=== PATIENT | male | born 1950 | race Caucasian/White ===

== ENCOUNTER → 2023-07-05 07:28 | Outpatient (REF) | payer MEDICARE, SELFPAY | LOC: HWRAD 07:28 | PROVIDERS: ATTENDING PHYSICIAN Family Medicine | DX: D18.03 Hemangioma of intra-abdominal structures (principal) | CPT/HCPCS: 76700 ==

== ENCOUNTER → 2023-12-07 09:38 | Outpatient (REF) | payer MEDICARE, SELFPAY | LOC: HWRAD 09:38 | PROVIDERS: ATTENDING PHYSICIAN Family Medicine | DX: R91.1 Solitary pulmonary nodule (principal) | CPT/HCPCS: 71250 ==

== ENCOUNTER → 2024-10-16 09:30 | Outpatient (REF) | payer MEDICARE, SELFPAY ==
[2024-10-16 11:04] LABS: Blood Urea Nitrogen 19 mg/dl (9-20); Calcium 9.2 mg/dl (8.4-10.2); Carbon Dioxide 23 mmol/L (22-30); Chloride 109 mmol/L (98-107); Glucose 90 mg/dl (70-99); Potassium 4.1 mmol/L (3.5-5.1); Sodium 142 mmol/L (135-145); eGFR > 60.00
[2024-10-16 11:33] LABS: PSA, Total - Screen 1.22 ng/ml (0.0-4.0)
== END ==
LOC: REG 09:30
PROVIDERS: ATTENDING PHYSICIAN Family Medicine Geriatric Medicine; FAMILY PHYSICIAN Family Medicine
DX: Z12.5 Encounter for screening for malignant neoplasm of prostate (principal)
CPT/HCPCS: 36415; 80048; G0103

== ENCOUNTER → 2024-10-17 14:26 | Outpatient (REF) | payer MEDICARE, SELFPAY | LOC: RAD 14:26 | PROVIDERS: ATTENDING PHYSICIAN Family Medicine Geriatric Medicine; FAMILY PHYSICIAN Family Medicine | DX: R22.2 Localized swelling, mass and lump, trunk (principal); C61 Malignant neoplasm of prostate | CPT/HCPCS: 71270; 74178; Q9967 ==

== ENCOUNTER → 2024-10-28 06:56 | Outpatient (REF) | payer MEDICARE, SELFPAY ==
[2024-10-28] VITALS (11 sets, daily range): BP systolic 66–132; BP diastolic 67–81
[2024-10-28 07:22] LABS: Hematocrit 38.2 % (39.0-52.0); Hemoglobin 13.1 g/dL (13.0-18.0); Mean Corp Hgb Conc. 34.3 g/dL (33.0-37.0); Mean Corpuscular Volume 92.5 fL (80.0-94.0); Nucleated Red Blood Cells % 0 % (-); Platelet Count 181 10^3/uL (130-400); Red Cell Dist. Width 13.1 % (11.5-14.5)
[2024-10-28 07:30] LABS: INR 1.06; PT 14.1 Sec (11.4-14.6)
== END ==
LOC: RADI 06:56
PROVIDERS: ATTENDING PHYSICIAN Family Medicine Geriatric Medicine; REFERRING PHYSICIAN Physician Assistant
DX: D49.2 Neoplasm of unspecified behavior of bone, soft tissue, and skin (principal); D68.8 Other specified coagulation defects
CPT/HCPCS: 20225; 36415; 77012; 85025; 85610; 88305; 88333; 99152; 99153

== ENCOUNTER → 2024-11-12 08:13 | Outpatient (REF) | payer MEDICARE, SELFPAY ==
[2024-11-12 08:32] LABS: Hematocrit 38.5 % (39.0-52.0); Hemoglobin 12.8 g/dL (13.0-18.0); Mean Corp Hgb Conc. 33.2 g/dL (33.0-37.0); Mean Corpuscular Volume 93.0 fL (80.0-94.0); Nucleated Red Blood Cells % 0 % (-); Platelet Count 168 10^3/uL (130-400); Red Cell Dist. Width 13.1 % (11.5-14.5)
[2024-11-12 08:47] VITALS: BP 124/69; BP_SYST 76; BMI 23.6
[2024-11-12] MEDS: ATIVAN 0.5 MG PO (09:22)
[2024-11-12 11:00] VITALS: BP 135/83
== END ==
LOC: RADI 08:13
PROVIDERS: ATTENDING PHYSICIAN Internal Medicine Hematology & Oncology
DX: C90.00 Multiple myeloma not having achieved remission (principal); C61 Malignant neoplasm of prostate; C79.51 Secondary malignant neoplasm of bone
CPT/HCPCS: 36415; 38222; 77012; 85025; 88305; 88311; 88312; 88313

== ENCOUNTER 2025-01-09 16:19 | Day surgery (SDC) | payer MEDICARE, SELFPAY ==
[2025-01-09] VITALS (16 sets, daily range): BP systolic 0–157; BP diastolic 52–79
--- NOTE | 2025-01-09 09:59 | HPS.HSE ---
Family Physician
-
Family Physician: Alexa Leiva, DO
Chief Complaint
-
Right inguinal hernia
History of Present Illness
This is a 74-year-old male with history of multiple myeloma currently being treated with Bortezomib (followed by Dr. Leiva/luisa) who presents with an acute incarceration over the past 8 hours of his right inguinal hernia in the setting of
worsening pain in the right groin over the past week. He is known to me and has been pursuing a course of watchful waiting. The patient denies Fever, Chest Pain, Shortness Of Breath, Nausea, Vomiting, changes in urinary and bowel habits,
unintentional weight loss, jaundice, icterus, acolic stools.
Medical History
Past Medical History
Past Medical History: Reports Other (Multiple myeloma, prostate cancer)
Past Surgical History: Reports Other (Orthopedic, none relevant)
Social History
Tobacco: Non-smoker
Alcohol: None
Personal:
Living: With Family
Family History
Family History: Not pertinent
Allergies / Home Medications
Allergies reflects when Allergies were last updated in [facility].
Home Medications with original date entered in [facility]
Allergy/Medication List:
Allergies
Allergy/AdvReac Type Severity Reaction Status Date / Time
latex Allergy Itching Verified 01/09/25 09:06
Penicillins Allergy Unknown Verified 01/09/25 09:06
Sulfa (Sulfonamide Allergy Hives Verified 01/09/25 09:06
Antibiotics)
Home Medications
�Medication �Instructions �Recorded
azelastine 137 mcg (0.1 %) nasal 2 spray intranasal BID 10/27/24
spray
calcium carbonate 600 mg PO DAILY 10/27/24
mometasone 0.1 % topical cream 1 applic topical DAILY PRN skin 10/27/24
condition
multivitamin 1 cap PO DAILY 10/27/24
tadalafil (pulm. hypertension) 20 20 mg PO DAILY 10/27/24
mg tablet (pulmonary hypertension)
vitamin B complex 1 cap PO DAILY 10/27/24
zinc sulfate 220 mg capsule 220 mg PO DAILY 10/27/24
dexAMETHasone 4 MG 5 tablet Orally 2 days a week Active
Niaspan 1000 MG qd Oral Jun, Not-Taking/PRN
Bortezomib once a week Active
Famotidine 20 MG 1 tablet at bedtime Orally once a week Active
Other Misc prostate medication Active
Citracal Maximum 315-250 MG-UNIT Take one tablet by mouth daily Oral Jun, Not-Taking/PRN
Tylenol 325 MG 1 tablet as needed Orally every 4 hrs prn Active
Flonase 50 MCG/ACT 2 sprays ea nostril daily Nasal Jun, Not-Taking/PRN
Zinc Active
Aspirin 81 MG 1 tablet Orally Once a day Active
Darzalex subc once a week Active
Revlimid 1 q 14 days alternating off 7 days Active
Acyclovir 200 MG 1 capsule Orally twice a day Active
B-Complex Active
Lupron Not-Taking/PRN
Benadryl 50 mg once a week Active
Singulair 10 MG 1 tablet Orally 3 times a week Active
Multivitamin Active
Rosuvastatin Calcium 20 MG 1 tablet Orally Once a day for 90 days Nov, Active
Vitamin C Active
Vitamin D3 5000 UNIT BID Oral Jun, Active
Tylenol Extra Strength 500 MG 2 tablet Orally once a week Active
Niacin Active
Review of Systems
-
A 12 point ROS was completed and negative except as noted: Yes
Physical Exam
Vital Signs
Vital Signs
Temp Pulse Resp BP Pulse Ox
98.5 F 81 18 157/79 99
01/09/25 09:06 01/09/25 09:06 01/09/25 09:06 01/09/25 09:06 01/09/25 09:06
Physical Exam
General: Well Developed
HEENT: NormoCephalic
Respiratory: Non Labored Respirations
GI: Soft, Non Distended and Tender (Tender to palpation in the right groin, inguinal hernia reduced with gentle pressure.)
Neuro: AO x 3
Data Reviewed
-
CT Scan: Other (Previous CT scan from October 2024 reviewed. Bowel containing right inguinal hernia.)
Lab Data: Labs Reviewed by me, Discussed with Physician and Discussed with Patient
Impression/Plan
-
IMPRESSION: This is a 74-year-old male with a history of prostate cancer, multiple myeloma currently under treatment, no prior surgical history who presents with an incarcerated right inguinal hernia, was able to reduce in the ED.
PLAN:
Given the duration of his incarcerated hernia would favor robotic repair to both assess the viability of the bowel and potentially repair his hernia.
I discussed this case with Dr. Leiva' partner Dr. Vazquez who we will formally consult regarding preoperative optimization
Stat labs ordered, can hold off on NG tube for now.
N.p.o., IV fluids, Ancef on-call 2 OR.
Will admit to the surgery service
Risks/Benefits/Alternatives, expected postoperative course and possible complications (bleeding, infection, injury to surrounding structures, acute/chronic pain) discussed at length. Patient wishes to proceed with surgery. All questions answered.
Consent obtained.
I spent 75 minutes in total for the care of this patient today including direct patient care and counseling, reviewing labs, imaging, coordination of care, as well as documentation.
[2025-01-09 10:04] LABS: Hematocrit 35.6 % (39.0-52.0); Hemoglobin 12.1 g/dL (13.0-18.0); Mean Corp Hgb Conc. 34.0 g/dL (33.0-37.0); Mean Corpuscular Volume 89.4 fL (80.0-94.0); Nucleated Red Blood Cells % 0 % (-); Platelet Count 154 10^3/uL (130-400); Red Cell Dist. Width 13.6 % (11.5-14.5)
[2025-01-09 10:14] LABS: Blood Urea Nitrogen 18 mg/dl (9-20); Calcium 8.9 mg/dl (8.4-10.2); Carbon Dioxide 24 mmol/L (22-30); Chloride 106 mmol/L (98-107); Glucose 122 mg/dl (70-99); Potassium 3.5 mmol/L (3.5-5.1); Sodium 137 mmol/L (135-145); eGFR > 60.00
--- NOTE | 2025-01-09 10:14 | ED.GENMED ---
History of Present Illness
General
Chief Complaint: Abdominal Symptoms
Source: patient and spouse
Time Seen by Provider: 01/09/25 09:16
History of Present Illness
History of Present Illness:
Note:
CHIEF COMPLAINT(S)
Hernia that has become non-reducible since Sunday.
HISTORY OF PRESENT ILLNESS
The patient is a 74-year-old male with a history of prostate cancer diagnosed in 2020 and myeloma, who presents with a hernia that has become non-reducible. He reports that the hernia had been present for a couple of years without causing issues
until recently. The hernia had been evaluated by Dr. Monge in 2022, and it was advised to monitor the condition. The patient noted that the hernia would typically reduce with manual pressure but was unable to do so since Sunday, prompting
todays visit. He reports mild discomfort associated with the hernia.
Additional historian
Patient's states that unfortunately his chemotherapy medication made him constipated which may have led to increased pressure and herniation
PAST MEDICAL AND SURGICAL HISTORY
The patient has a past medical history of prostate cancer diagnosed in 2020 and myeloma. The patient was taking Revlimid
CHRONIC MEDICAL CONDITIONS SIGNIFICANTLY AFFECTING CARE
- Prostate cancer
- Myeloma
REVIEW OF SYSTEMS
- Gastrointestinal: Constipation associated with Revlimid.
- Musculoskeletal: Hernia with discomfort; no other issues reported.
PHYSICAL EXAM
General: Alert, no acute distress.
Gastrointestinal: Abdomen is nondistended with a sizable inguinal hernia that was successfully reduced with manual manipulation. No signs of bowel obstruction noted.
Respiratory: No respiratory distress observed.
PLAN
The hernia was manually reduced during the visit. The patient is advised to avoid activities that increase intra-abdominal pressure, such as coughing and sneezing. A follow-up plan will be developed in coordination with the patients surgeon to
decide on further management of the hernia.
DIFFERENTIAL DIAGNOSIS
The Differential Diagnosis includes, in no particular order and is not limited to:
1. Inguinal hernia
2. Femoral hernia
3. Abdominal wall hernia
4. Incisional hernia
5. Obstructed hernia
6. Strangulated hernia
7. Testicular torsion
8. Adhesions
9. Bowel obstruction
10. Gastrointestinal perforation
Disposition:
SUMMARY OF ENCOUNTER
The patient, a 74-year-old male with a history of prostate cancer and myeloma, presented to the emergency department with a non-reducible inguinal hernia. Initially, the hernia was manually reduced. Subsequent examination and discussion with general
surgery determined that operative management would be the most appropriate next step. The patient remained hemodynamically stable throughout the visit.
DISPOSITION
Admit for surgical intervention.
MANAGEMENT OF THE PATIENTS CARE WAS DISCUSSED WITH
The case was discussed with the general surgery team. The surgical team evaluated the patient at the bedside and concurred that operative repair of the inguinal hernia is necessary.
PLAN
Admit the patient to undergo surgical repair of the right inguinal hernia.
MEDICAL DECISION MAKING
-Complexity of Data Reviewed: Chronic conditions affecting care include prostate cancer and myeloma. Differential Diagnosis includes inguinal hernia, femoral hernia, abdominal wall hernia, incisional hernia, obstructed hernia, strangulated hernia,
testicular torsion, adhesions, bowel obstruction, and gastrointestinal perforation.
Category 3
Discussion of management with general surgery, who assessed the patient and advised on surgical repair of the inguinal hernia.
DIAGNOSIS
Inguinal hernia, non-reducible (ICD-10: K40.90).
Past History
Past History
ED Past Medical History: Cancer (Prostate, multiple myeloma)
Phy Exam
Physical Exam
Physical Exam:
.
Course
Orders/Labs/Results
Orders:
Orders
01/09/25 Breakfast
NPO
Allow oral meds: Yes
Allow clear liquids: No
01/09/25 09:49
Basic Metabolic Panel Stat
Complete Blood Count/With Diff Stat
01/09/25 10:03
PT/INR [Prothrombin Time] Stat
PTT Stat
01/09/25 10:11
Admit/Transfer Patient As Directed
Co-Sign Provider:
Level of Care: Post Proc/Surg Recovery
Assign to:: Medical/Surgical
Physician / Group: Ezio Monge
Diagnosis: incarcerated right inguinal hernia
Reason for Overnight Stay: Standard of Care
01/09/25 10:12
Code Status As Directed
Resuscitation Status: Full Code
PRN Pain Medication Management As Directed
May give lesser potent ordered pain med per pt: Yes
preference::
Protocol:: Medication orders for pain may be administered in a
manner that supports deferring to patient preference
when the pt is:
- Requesting an ordered lesser potent pain medication.
Least to most potent pain medications are defined
as: acetaminophen < NSAID < tramadol < opioids
(morphine, oxycodone, hydromorphone).
- Requesting a lesser dose of the same medication IF
ORDERED.
- Requesting a less intrusive route of administration
if both routes are prescribed by the provider (PO <
IV).
01/09/25 10:15
0.9% Sodium Chloride 1000 ml [Nss] 1,000 ml IV 100 mls/hr
01/09/25 12:30
CeFAZolin 2 GRAM [Ancef] 2 grams in 10 ml IV PRE PROCEDURE
01/09/25 Dinner
Regular
At Your Request: Limited Participation
Does patient need a safe tray?: No
01/09/25 16:13
Fentanyl Citrate/Pf [Sublimaze] 25 mcg IV [id number] PRN
HYDROmorphone [Dilaudid] 0.25 mg IV PACU-Q5MPRN PRN
HYDROmorphone [Dilaudid] 0.5 mg IV PACU-Q5MPRN PRN
Ondansetron Injectable [Zofran] 4 mg IV PACU-ONCEPRN PRN
Notify MD As Directed
Notify physician if: for SDS patients with known or suspected sleep obstructive sleep apnea, monitor in the
PACU.
Notify MD for any apneic/desaturation episodes
O2 Therapy [RESP] Urgent
Titrate/Wean O2 to maintain O2 sat greater than (%): 92
Special Instructions: -Provide supplemental oxygen to achieve O2 sat of 92% or greater.
-After 15 min, may wean O2 and discontinue if patient is able to maintain O2 sat of 92%
or greater during recovery period.
If patient is a discharge home, without oxygen therapy, notify anestheiologist if
unable to maintain O2 SAT of 92% or greater on room air for MD clearance.
01/09/25 16:15
Normosol (Mult Electrolytes) [Normosol-R/Plasmalyte-A] 1,000 ml IV PER PROTOCOL
01/09/25 16:21
Acetaminophen [Tylenol] 650 mg PO Q4HPRN PRN
HYDROmorphone [Dilaudid] 1 mg IV Q4HPRN PRN
Ondansetron Injectable [Zofran] 4 mg IV Q6HPRN PRN
Oxycodone [Roxicodone] 5 mg PO Q4HPRN PRN
01/09/25 16:21
Activity As Directed
Activity Level: Out of Bed-Early Mobility
Anti-embolism (ROMEL) Hose As Directed
Type: Thigh high
Intake/ Output As Directed
Frequency: Per unit guidelines
Pneumatic Compression Sleeves As Directed
Type: Knee high
Vital Signs As Directed
Frequency: Per unit guidelines
DX Deep Vein Thrombosis Video Routine
01/09/25 16:23
Bupivacaine Mpf 0.25% [Sensorcaine-Mpf 0.25% Vial] 60 ml .ROUTE .STK-MED ONE
01/09/25 16:32
Dexamethasone Sod Phosphate [Decadron] 20 mg .ROUTE .STK-MED ONE
Fentanyl Citrate/Pf [Sublimaze] 100 mcg .ROUTE .STK-MED ONE
Lidocaine HCl/Pf [Xylocaine-Mpf 1% Vial] 50 mg .ROUTE .STK-MED ONE
Ondansetron Injectable [Zofran] 4 mg .ROUTE .STK-MED ONE
Propofol [Diprivan] 20 ml .ROUTE .STK-MED
Rocuronium [place] [Rocuronium] 50 mg .ROUTE .STK-MED ONE
01/09/25 17:00
Flush (0.9% Sodium Chloride) [Flush (Nss)] See Dose Instructions IV PER PROTOCOL
01/09/25 17:05
Sugammadex Sodium [Bridion] 200 mg .ROUTE .STK-MED ONE
01/09/25 18:03
HYDROmorphone [Dilaudid] 1 mg .ROUTE .STK-MED ONE
01/09/25 18:28
Tranexamic Acid 1,000 mg .ROUTE .STK-MED ONE
01/09/25 18:56
Acetaminophen 1000MG/100Ml [Ofirmev] 1,000 mg in 100 ml .ROUTE .STK-MED
01/09/25 19:55
Oxycodone [Roxicodone] 5 mg PO Q4HPRN PRN
Drains As Directed
Type: Micah Kent
01/09/25 22:00
Docusate Sodium [Colace] 100 mg PO BID
Sennosides [Senokot] 17.2 mg PO BID
01/10/25 05:50
Basic Metabolic Panel IN AM
Complete Blood Count/No Diff IN AM
01/10/25 08:57
Case Management Consult ONCE
Case Management Consult: Discharge Planning
Comment: home with drain
Tentative Discharge Date: 01/10/25
01/10/25 10:00
Polyethylene Glycol Powder [Miralax] 17 grams PO DAILY
01/10/25 10:23
Pt Screening Request from Janice Routine
01/10/25 10:25
DX Deep Vein Thrombosis Video Routine
01/10/25 12:00
Acetaminophen [Tylenol] 650 mg PO Q4HWA
01/10/25 12:51
Discharge Patient As Directed
Discharge patient after: d/c with drain in place
Is patient a candidate for the pneumococcal vaccine?: No
Year the MOST RECENT Conjugate Pneumococcal vaccine received: UNK
Is patient a candidate for the influenza vaccine?: No
01/10/25 18:00
Enoxaparin Sodium [Lovenox] 40 mg SC QPM
Abnormal Lab Results
01/09/25 01/09/25 01/10/25
09:49 10:03 05:50
RBC 3.98 L 10^6/uL 3.52 L 10^6/uL
(4.70-6.10) (4.70-6.10)
Hgb 12.1 L g/dL 10.8 L g/dL
(13.0-18.0) (13.0-18.0)
Hct 35.6 L % 32.6 L %
(39.0-52.0) (39.0-52.0)
Absolute Neuts (auto) 6.8 H 10^3/uL
(1.4-6.5)
Absolute Lymphs (auto) 0.3 L 10^3/uL
(1.2-3.4)
Neutrophils % 93.5 H %
(42.2-75.2)
Lymphocytes % 3.8 L %
(20.5-51.1)
APTT 42.6 H Sec
(23.4-35.0)
Chloride 108 H mmol/L
(98-107)
Glucose 122 H mg/dl
(70-99)
Calcium 7.5 L mg/dl
(8.4-10.2)
01/10/25 05:50
01/10/25 05:50
Vital Signs
Initial and Last Documented VS:
Initial Vital Signs
Temp Pulse Resp BP Pulse Ox
98.5 F 81 18 157/79 99
01/09/25 09:06 01/09/25 09:06 01/09/25 09:06 01/09/25 09:06 01/09/25 09:06
Last Documented Vital Signs
Temp Pulse Resp BP Pulse Ox
97.8 F 78 16 119/52 100
01/10/25 07:14 01/10/25 07:14 01/10/25 07:14 01/10/25 07:14 01/10/25 07:14
*Pulse Oximetry
SaO2: 99
Oxygen Mode of Delivery: Room air
Patient hypoxic: no
*Critical Care Note
Total Time (30-74mins, 75-104mins- exclusive of procedures): Not Applicable
ED Attending Note
-
Portions of this chart may have been created with voice recognition software.� Occasional wrong word or��sound alike� substitutions may have occurred due to the inherent limitations of voice recognition software.
Discharge Plan
Departure
Patient Disposition: Admit
Date of Disposition: 01/09/25
Time of Disposition: 10:14
Presentation/result/management discussed w/ accepting MD/DO: surgery
Discharge Problem:
Inguinal hernia
Interventions
Interventions:
*Risk Screen - Suicide Last Done: 01/09/25 20:35
*General Assessment Last Done: 01/09/25 09:06
*Neglect/Abuse Screening Last Done: 01/09/25 09:27
*ED- Fall Risk Assessment Last Done: 01/09/25 09:26
*ED COVID-19 Vaccine History Last Done: 01/09/25 09:26
*ED Influenza Vaccine History Last Done: 01/09/25 09:26
*Nursing Disposition Last Done: 01/09/25 16:04
LP-Emsdhd-Hstrsaccej Assessment Last Done: 01/09/25 09:27
Discharge Date and Time
Discharge Date/Time: 01/09/25 16:04
[2025-01-09 10:28] LABS: INR 1.06; PT 14.2 Sec (11.4-14.6)
[2025-01-09 10:29] LABS: APTT 42.6 Sec (23.4-35.0)
[2025-01-09] MEDS: NSS 1000 IV ×2 (10:36→21:00)
--- NOTE | 2025-01-09 10:48 | EDCM ---
CM reviewed chart and met with pt bedside in ED. Lives with his in ranch style home, [address].
Independent in ADLs, personal care and ambulation at baseline. Does have walkers but not currently using.
Currently receiving treatment for myeloma at , [facility].
Confirms prescription coverage.
No hx VN or SNF.
PCP: Aaron Nesbitt
Pharmacy: [facility]
Anticipate discharge home, CM will continue to follow for any discharge planning needs.
--- NOTE | 2025-01-09 11:01 | W.SUR.PREOP ---
Pre-Operative Surgical Note
-
I have examined this patient prior to the performance of the scheduled procedure.
The patient's condition is unchanged from the time of the current History and
Physical and the patient is able to undergo the scheduled procedure.
--- NOTE | 2025-01-09 15:10 | CON.ONC ---
Consultation
-
Date Consultation Requested: 01/09/25
Date Consultation Performed: 01/09/25
Requesting Provider: Dr. Monge
Performing Provider: Dr. Vazquez
Reason for Consultation: h/o myeloma
Impression
Impression
inguinal hernia - for potential emergent surgery
multiple myeloma
prolonged aPTT
Plan
Plan
1. Inguinal hernia - incarcerated - now reduced w/ potential plans for surgical procedure
Preoperative testing did reveal a prolonged aPTT of 46 seconds. Daratumumab is a CD38 monoclonal antibody which can interact w/ reagents used to perform coagulation studies - including aPTT - resulting in prolonged clotting times. Rarely, patient's
with multiple myeloma can develop an acquired hemophilia A. Will check aPTT mixing study.
It is noted that the patient has been on an aspirin 81mg daily. This also could potentially increase the patient's risk for bud-operative bleeding. If concerned for bleeding, platelet transfusion could be considered for hemostasis, as donor
platelets would not have been exposed to aspirin.
Post-operatively, if there is no concern for bleeding, standard pharmacologic VTE thromboprophylaxis with lovenox 40mg sq daily, would be indicated, given hypercoagulable state of myeloma as well as Revlimid exposure.
Will continue to follow with you.
Patient History
History of Present Illness
74y/o male seen in consultation today regarding h/o multiple myeloma.
The patient was diagnosed w/ multiple myeloma in November and has been receiving treatment w/ Dr. Leiva. He is currently being treated w/ daratumumab/ velcade and dexamethasone along w/ Revlimid, which he is currently on his week off. He last received
daratumumab on 01/02.
He presents today to the [facility] ER w/ a large inguinal hernia, which was reduced in the ER. He has met w/ Dr. Monge and planned operative inguinal hernia repair is being contemplated, potentially later today.
CBC in the ER revealed total WBC 7300, hemoglobin 12.1g/dl, and platlelet count 154,000. Coagulation panel revealed a PT of 14.1 seconds, INR of 1.06, and prolonged aPTT of 42.6 seconds (nl 23-35s).
It is also noted that the patient has been on aspirin 81mg daily, with ongoing Revlimid therapy.
Clinically, he is feeling better, w/ hernia reduced. He continues to have some lower abdominal / inguinal discomfort. He denies SOB, chest pain, palpitations. No fevers or chills.
Past-Medical/Surgical History
PMH:
myeloma
plasmacytoma
prostate cancer
arthritis
cataracts
GERD
meningitis
PSH:
left rib biopsy - 10/28/24
prostate biopsy - 2020
SH:
former smoker - quit 1973
no significant ETOH
FH:
sister w/ spinal cord tumor
[facility]: PCN, sulfa
Patient Medication
�Medication �Instructions �Recorded �Confirmed �Last Taken �Type
calcium carbonate 600 mg PO DAILY 10/27/24 01/09/25 Unknown History
acetaminophen 325 mg tablet 650 mg PO Q6HPRN PRN take before 01/09/25 01/09/25 Unknown History
(Tylenol) and after treatment
acyclovir 400 mg tablet 400 mg PO BID CORRECTION 01/09/25 01/09/25 01/09/25 History
aspirin 81 mg tablet,delayed 81 mg PO DAILY 01/09/25 01/09/25 01/08/25 History
release
bortezomib 3.5 mg injection powder 2.4 mg IV FR 01/09/25 01/09/25 01/02/25 History
for solution (Velcade)
denosumab 60 mg/mL subcutaneous 60 mg SC [id number] 01/09/25 01/09/25 2 Weeks Ago History
syringe (Prolia) ~12/26/24
dexamethasone 4 mg tablet 20 mg PO DIRECTED 01/09/25 01/09/25 01/09/25 History
diphenhydramine HCl 25 mg capsule 25 mg PO DAILYPRN PRN take the day 01/09/25 01/09/25 Unknown History
(Benadryl) of treatment before going
docusate sodium 100 mg capsule 100 mg PO BID 01/09/25 01/09/25 Unknown History
(Colace)
famotidine 20 mg tablet (Pepcid) 20 mg PO DIRECTED 01/09/25 01/09/25 Unknown History
lenalidomide 25 mg capsule 25 mg PO DIRECTED 01/09/25 01/09/25 01/07/25 History
(Revlimid)
montelukast 10 mg tablet 10 mg PO DIRECTED 01/09/25 01/09/25 Unknown History
(Singulair)
peg 400-propylene glycol (PF) 0.4 1 drp BOTH EYES TIDPRN PRN dryness 01/09/25 01/09/25 Unknown History
%-0.3 % eye drops in a dropperette
(Systane (PF))
rosuvastatin 20 mg tablet (Crestor) 20 mg PO QPM 01/09/25 01/09/25 01/08/25 History
sennosides 8.6 mg tablet (senna) 17.2 mg PO BID 01/09/25 01/09/25 Unknown History
Active Medications
Generic Name Dose Route Start Last Admin
Trade Name Freq PRN Reason Stop Dose Admin
Sodium Chloride 1,000 mls @ 100 mls/hr 01/09/25 10:15 01/09/25 10:36
Nss IV 1,000 mls
.Q10H TALITA Administration
Review of Systems
-
A ROS was performed w/ pertinent findings as per HPI.
Physical Exam
-
General: Well Developed and No Apparent Distress
HEENT: Negative Jaundice
Cardiology: Normal Sinus Rhythm
Pulmonary: Clear
Musculoskeletal: No Edema
Extremities: Negative Edema
Neurology: Non Focal
Labs
Lab Results
WBC 7.3 10^3/uL (4.8-10.8) 01/09/25 09:49
RBC 3.98 10^6/uL (4.70-6.10) L 01/09/25 09:49
Hgb 12.1 g/dL (13.0-18.0) L 01/09/25 09:49
Hct 35.6 % (39.0-52.0) L 01/09/25 09:49
MCV 89.4 fL (80.0-94.0) 01/09/25 09:49
MCH 30.4 pg (27.0-31.0) 01/09/25 09:49
MCHC 34.0 g/dL (33.0-37.0) 01/09/25 09:49
RDW 13.6 % (11.5-14.5) 01/09/25 09:49
Plt Count 154 10^3/uL (130-400) 01/09/25 09:49
MPV 10.0 fL (7.4-10.4) 01/09/25 09:49
Abs Immat Gran (auto) 0.0 10^3/uL (0-0.05) 01/09/25 09:49
Absolute Neuts (auto) 6.8 10^3/uL (1.4-6.5) H 01/09/25 09:49
Absolute Lymphs (auto) 0.3 10^3/uL (1.2-3.4) L 01/09/25 09:49
Absolute Monos (auto) 0.1 10^3/uL (0.1-0.6) 01/09/25 09:49
Absolute Eos (auto) 0.0 10^3/uL (0-0.7) 01/09/25 09:49
Absolute Basos (auto) 0.0 10^3/uL (0-0.2) 01/09/25 09:49
Immature Gran % 0.3 % (0-0.5) 01/09/25 09:49
Neutrophils % 93.5 % (42.2-75.2) H 01/09/25 09:49
Lymphocytes % 3.8 % (20.5-51.1) L 01/09/25 09:49
Monocytes % 1.8 % (1.7-9.3) 01/09/25 09:49
Eosinophils % 0.3 % (0-6) 01/09/25 09:49
Basophils % 0.3 % (0-2) 01/09/25 09:49
Creatinine 0.7 mg/dL (0.7-1.3) 01/09/25 09:49
Vital Signs
Vital Signs
Temp Pulse Resp BP Pulse Ox
98.5 F 77 16 123/66 96
01/09/25 09:06 01/09/25 13:55 01/09/25 13:55 01/09/25 13:00 01/09/25 13:30
--- NOTE | 2025-01-09 19:49 | W.IMMPOSTOP ---
Surgical Immed Post Op Note
-
Primary Surgeon: Ezio Monge MD
Co-surgeon: Brett Parikh MD
Pre-op Diagnosis: Incarcerated right inguinal hernia
Post-op Diagnosis: Same
Procedure Performed: Robotic incarcerated right inguinal hernia repair with mesh
Anesthesia Type: General
Specimen / Cultures: None
Estimated Blood Loss: 23 cc
Complications: None
Operative Findings: Large right scrotal hernia containing colon with a sliding component. Bowel viable after reduction. A flap was started in the preperitoneal space above the ASIS and transitioned to the retrorectus spaces at the tissues were
quite thin. The epigastrics were identified and preserved. The dissection was carried down to the pubic bone and across the midline. The defect was quite a bit bigger than anticipated so a fourth arm was inserted. At this point of the operation
I called my partner Dr. Parikh and to assist with reducing the sac which we did while preserving the blood supply to the testicles as well as the spermatic cord. There was a small cord lipoma that was removed. After achieving the critical view of
the MPO a 19 [place] round Hernan drain was introduced through a stab incision in the right lower quadrant and passed into the spermatic cord this was then covered with an extra-large Bard 3D max mid weight uncoated polypropylene mesh which was
secured to Jacobo's ligament in the typical position. The flap was then closed and the space evacuated via the drain confirming. All needles, 4 x 4's and redundant sac were removed. There was a rent in the peritoneum which was closed as well.
There was some oozing noted during the case so 1 g of TXA was administered by anesthesia.
POST OP PLAN:
Imaging: None
Labs: Routine AM
Diet: Advance to Regular as tolerated
Analgesia: Tylenol 650mg q6 Ania, oxycodone 5 mg every 6 PRN, Dilaudid 0.5mg q2h PRN
Neuro/vascular checks: Per unit protocol
AC/AP: Hold Therapeutic AC, Ok for DVT PPx
Activity: Ad Radha
Wound/Incisions/Drains: Routine
Abx: None
Dispo: RNF, anticipate discharge home this weekend pending clinical course.
[2025-01-09] MEDS: COLACE 100 MG PO (22:05)
[2025-01-09] MEDS: SENOKOT 17.2 MG PO (22:05)
[2025-01-10] MEDS: DILAUDID 1 MG IV ×2 (00:06→05:15)
[2025-01-10 03:00] VITALS: BP 119/57
[2025-01-10 06:44] LABS: Hematocrit 32.6 % (39.0-52.0); Hemoglobin 10.8 g/dL (13.0-18.0); Mean Corp Hgb Conc. 33.1 g/dL (33.0-37.0); Mean Corpuscular Volume 92.6 fL (80.0-94.0); Platelet Count 160 10^3/uL (130-400); Red Cell Dist. Width 14.0 % (11.5-14.5)
[2025-01-10 07:14] VITALS: BP 119/52
[2025-01-10 07:16] LABS: Blood Urea Nitrogen 20 mg/dl (9-20); Calcium 7.5 mg/dl (8.4-10.2); Carbon Dioxide 26 mmol/L (22-30); Chloride 108 mmol/L (98-107); Glucose 85 mg/dl (70-99); Potassium 3.8 mmol/L (3.5-5.1); Sodium 140 mmol/L (135-145); eGFR > 60.00
[2025-01-10] MEDS: NSS 1000 IV (08:47)
[2025-01-10] MEDS: COLACE 100 MG PO (08:49)
[2025-01-10] MEDS: SENOKOT 17.2 MG PO (08:49)
[2025-01-10] MEDS: MIRALAX 17 GRAMS PO (09:55)
--- NOTE | 2025-01-10 10:23 | W.PN.GS2 ---
Addendum entered and electronically signed by Luis Fowler MD 01/10/25 15:21:
I saw and examined the patient.
The SOCIETY EDITOR's note was reviewed and I agree with the note.
�Agree with DC today
Addendum entered and electronically signed by SCAR Gary 01/10/25 12:53:
will d/c with DIONNE in place for tentative OP removal next week pending outputs
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
Original Note:
Today's Communication / Plan
-
dispo planning
Assessment / Plan
-
74 yo male undergoing tx for multiple myeloma who presented with incarcerated right inguinal hernia
AFVSS
Tolerated the procedure well
Stable labs post op
DIONNE with minimal outputs
Tolerating diet
Plan:
Continue regular diet
D/C IVF
Anticipate d/c later today
Appreciate hematology
Analgesics prn, avoid narcotics if able given constipation
Continue bowel regimen with colace/senna. Add Miralax
Lovenox 40mg sq for VTE ppx
Subjective Data
-
Date of Service: January 10, 2025
Pt seen and examined at bedside with Dr. Fowler. Denies n/v. Tolerating diet. Not yet passing much flatus. Pain well managed/minimal. notes constipation prior to admission.
Objective Data
-
Intake and Output
01/09/25 01/10/25 01/11/25
06:59 06:59 06:59
Intake Total 2034
Output Total 260 / 260
Balance 177 / 177
Intake:
Oral fluids 960 / 960
IV fluids (Total) 1075 / 1075
normosol 75 / 75
Output:
Drain Output (Total)
Right Lower Abdomen Micah-
Kent
Urine, Voided 250 / 250
Vital Signs
Temp Pulse Resp BP Pulse Ox
97.8 F 78 16 119/52 100
01/10/25 07:14 01/10/25 07:14 01/10/25 07:14 01/10/25 07:14 01/10/25 07:14
Lab Results
01/10/25 05:50
01/10/25 05:50
Calcium 7.5 mg/dl (8.4-10.2) L 01/10/25 05:50
Physical Exam
-
NAD
ABD soft, nt, nd
DIONNE with minimal SSF
Incisions well approximated, intact glue
[2025-01-10] MEDS: TYLENOL 650 MG PO (11:38)
--- NOTE | 2025-01-10 14:10 | W.PN.ONC2 ---
Today's Communication / Plan
-
- recovering well from surgery without bleeding symptoms.
- holding revlimid until recovered
- outpt oncology follow up as scheduled.
Impression
Impression
inguinal hernia - for potential emergent surgery
multiple myeloma
prolonged aPTT
Plan
Plan
1. Inguinal hernia - incarcerated - s/p repair 01/09.
- Preoperative testing did reveal a prolonged aPTT of 46 seconds. Daratumumab is a CD38 monoclonal antibody which can interact w/ reagents used to perform coagulation studies - including aPTT - resulting in prolonged clotting times. Rarely,
patient's with multiple myeloma can develop an acquired hemophilia A. aPTT mixing study ordered. No abnormal bleeding or bruising before or after surgery so far.
- standard pharmacologic VTE thromboprophylaxis with lovenox 40mg sq daily given hypercoagulable state of myeloma as well as Revlimid exposure. please resume home ASA once surgery feels appropriate.
- pt instructed to hold Revlimid start on 01/14 to ensure stable counts while recovering.
- ongoing MM tx after discharge scheduled.
Subjective/Objective
Chief Complaint
inguinal hernia, MM
Subjective
pt underwent hernia repair yesterday. He has some discomfort at drain site however overall pain better than pre-surgery.
Vital Signs:
Vital Signs
Temp Pulse Resp BP Pulse Ox
97.8 F 78 16 119/52 100
01/10/25 07:14 01/10/25 07:14 01/10/25 07:14 01/10/25 07:14 01/10/25 07:14
Lab Results:
Laboratory Data
WBC 8.7 10^3/uL (4.8-10.8) 01/10/25 05:50
Hgb 10.8 g/dL (13.0-18.0) L 01/10/25 05:50
Plt Count 160 10^3/uL (130-400) 01/10/25 05:50
PT 14.2 Sec (11.4-14.6) 01/09/25 10:03
INR 1.06 01/09/25 10:03
APTT Cancelled 01/09/25 15:09
eGFR > 60.00 01/10/25 05:50
Physical Exam
HEENT: No Jaundice
Cardiology: Normal Sinus Rhythm
Pulmonary: Clear
GI: Soft and Other (surgical incisions wtihout erythema. RLQ perc drain. ); No Normal Bowel Sounds (decreased)
Extremities: No Edema
Neuro: Non Focal
Review of Systems
Review of Systems
Constitutional: Denies Fever or Fatigue
Respiratory: Denies Dyspnea
Cardiovascular: Denies Chest Pain
Gastrointestinal: Reports Other (constipation ); Denies Nausea/Vomiting
--- NOTE | 2025-01-10 14:16 | CM ---
Met with pt and at bedside. CM consult complete.Pt is discharged to home with DIONNE drain. Pt chose [facility] consult-LM on phone. Pt is discharged today
Plan: Home with [facility]; pt has DIONNE drain.
--- NOTE | 2025-01-15 10:40 | OR.RPT ---
Operative Report
Operative Report
Patient Name: Yvon Ayala
: 1950
Date of Operation: 01/09/2025
Pre-op Diagnosis: Incarcerated right inguinal hernia
Post-op Diagnosis: Same
Primary Surgeon: Ezio Monge MD
Petroleum Geologist:
Brett Parikh MD
Scott Aniatoi DARDEN
Procedure Performed: Robotic incarcerated right inguinal hernia repair with mesh
Anesthesia Type: General
Specimen / Cultures: None
Estimated Blood Loss: 23 cc
Drains/Lines/Implants: XLarge 3D Max Bard mid weight uncoated polypropylene mesh. 19 [place] round Hernan in the preperitoneal space.
Indication for surgery: This is a 74-year-old male with a history of multiple myeloma currently on chemotherapy who presents with a known right inguinal hernia that has grown and become more symptomatic over the past year. Over the past week it has
become more swollen and painful and difficult to reduce. Today he presented with an incarcerated right inguinal hernia which we were able to reduce prior to surgery following review of therapeutic options they consented to undergo a minimally
invasive repair.
Operative Findings: Large right scrotal hernia containing colon with a sliding component. Bowel viable after reduction. A flap was started in the preperitoneal space above the ASIS and transitioned to the retrorectus spaces at the tissues were
quite thin. The epigastrics were identified and preserved. The dissection was carried down to the pubic bone and across the midline. The defect was quite a bit bigger than anticipated so a fourth arm was inserted. At this point of the operation
I called my partner Dr. Parikh and to assist with reducing the sac which we did while preserving the blood supply to the testicles as well as the spermatic cord. There was a small cord lipoma that was removed. After achieving the critical view of
the MPO a 19 [place] round Hernan drain was introduced through a stab incision in the right lower quadrant and passed into the spermatic cord this was then covered with an extra-large Bard 3D max mid weight uncoated polypropylene mesh which was
secured to Jacobo's ligament in the typical position. The flap was then closed and the space evacuated via the drain confirming. All needles, 4 x 4's and redundant sac were removed. There was a rent in the peritoneum which was closed as well.
There was some oozing noted during the case so 1 g of TXA was administered by anesthesia.
Details of the operation:
The patient was brought to the Operating Room and placed in the supine position with the arms tucked. IV antibiotics were infused and Venodyne stockings placed. Following uneventful induction of general endotracheal anesthesia, an orogastric tube
was placed. The abdomen was prepped and draped in the usual sterile fashion. The abdomen was entered using a Veress technique which required 1 pass, pneumoperitoneum to 15 mmHg was obtained without difficulty. An 8mm trochar was passed through the
abdominal wall roughly 20 cm cephalad to the inguinal canal. We then confirmed that no inadvertent injury was made while passing the trocar or Veress needle. We then placed two additional 8 mm ports in the left upper and right upper quadrants. We
then docked the robot with a Prograsper in the left hand port and monopolar scissors in the right. A very large right inguinal hernia was immediately identified in the indirect space. There was also a small indirect hernia on the left. We then
began by creating a flap at the level of the ASIS laterally on the right working our way medially to the medial umbilical fold. We continued our dissection medially over the space of Retzius and to the level of the inguinal ring. The hernia was
larger than anticipated so I called my partner Dr. Parikh in to assist with of the robotic dissection. An additional 8 mm port was placed in the patient's left lateral wall and an extra energy assistant arm was introduced. Please see Dr. Parikh's
separately dictated op report for further details but we were carefully able to reduce the entire hernia sac off of the underlying spermatic cord and testicular vessels, taking care to preserve them. There was a medium size cord lipoma which was
reduced. There was no direct or femoral component. A critical view of the MPO was achieved. Due to the size of the hernia 1 g of TXA was administered to minimize any inflammatory bleeding and prevent hematoma formation. Also given the size of
the hernia defect I elected to place a drain in the inguinal canal which we introduced through a stab incision in the right lower quadrant. A 19 [place] round Hernan drain was carefully passed into the canal and secured to the skin with a 2-0 nylon
suture. An extra-large Bard soft uncoated polypropylene midweight mesh was then introduced and secured at coopers ligament and 2 other fixation points. The flap was then closed with a 2-0 Monocryl STRATAFIX suture. The area in the flap cavity was
then evacuated of air via the drain confirming that the mesh was flush and there were no folds. A small rent in the peritoneum was noted and closed with 2-0 Vicryl. All needles and instruments were then removed and the robot was undocked. The
abdomen was then desufflated, and pneumoperitoneum evacuated. All skin sites were then closed with 4-0 Monocryl followed by Dermabond. Counts were correct and overall, the patient tolerated the procedure well and was taken to the Recovery Room
postoperatively in stable condition.
I was the attending physician and performed the procedure with assistance of the COMMITTEE MEMBER above. Dr. Parikh performed much of the hernia sac dissection as detailed above and in his separately dictated op report. I was present for all portions of the
case.
Ezio Monge MD
== END 2025-01-10 15:08 | disposition home or self-care (01) ==
LOC: SDS 16:19
PROVIDERS: ATTENDING PHYSICIAN Surgery; EMERGENCY PHYSICIAN Emergency Medicine; FAMILY PHYSICIAN Internal Medicine Hematology & Oncology
DX: K40.30 Unilateral inguinal hernia, with obstruction, without gangrene, not specified as recurrent (principal)
CPT/HCPCS: 49650; 80048; 85025; 85027; 85610; 85730; 96360; 96361; 99284; C1781

== ENCOUNTER 2025-01-19 02:10 | Inpatient (IN) | payer MEDICARE, SELFPAY ==
[2025-01-18 21:03] VITALS: BP 121/56
[2025-01-18 21:48] LABS: Hematocrit 36.2 % (39.0-52.0); Hemoglobin 12.1 g/dL (13.0-18.0); Mean Corp Hgb Conc. 33.4 g/dL (33.0-37.0); Mean Corpuscular Volume 93.3 fL (80.0-94.0); Nucleated Red Blood Cells % 0 % (-); Platelet Count 204 10^3/uL (130-400); Red Cell Dist. Width 14.7 % (11.5-14.5)
[2025-01-18 21:50] VITALS: BP 119/50
[2025-01-18 22:00] VITALS: BP 118/48
[2025-01-18 22:03] LABS: ALT (SGPT) 22 U/L (0-50); AST (SGOT) 23 U/L (17-59); Albumin 3.7 g/dl (3.5-5.0); Alkaline Phosphatase 81 U/L (38-126); Blood Urea Nitrogen 26 mg/dl (9-20); Calcium 8.6 mg/dl (8.4-10.2); Carbon Dioxide 24 mmol/L (22-30); Chloride 107 mmol/L (98-107); Glucose 136 mg/dl (70-99); Potassium 3.7 mmol/L (3.5-5.1); Sodium 137 mmol/L (135-145); Total Protein 6.9 g/dl (6.3-8.2); eGFR > 60.00
[2025-01-18] MEDS: NSS 1000 IV (22:36)
[2025-01-18 23:00] VITALS: BP 122/56
--- NOTE | 2025-01-19 01:01 | ED.GENMED ---
History of Present Illness
General
Chief Complaint: Post Operative Problem(s)
Source: patient and spouse
Exam Limitations: none
Time Seen by Provider: 01/18/25 22:07
Nursing documentation reviewed up to this point in time: agreed with
History of Present Illness
History of Present Illness:
Note:
CHIEF COMPLAINT(S)
Postoperative abdominal pain following recent hernia repair surgery.
HISTORY OF PRESENT ILLNESS
The patient is a 74-year-old male who recently underwent surgery on January 09 for an incarcerated hernia. The procedure was completed without immediate complications, and he was discharged on Sunday afternoon, the day following the surgery. The
patient reports having had no issues until the early hours (3 or 4 AM) following his discharge. Around this time, he began experiencing increased abdominal pain and notable discharge from the surgical site. Specifically, the discharge has been
described as purulent. The patient also reports experiencing chills earlier this evening and subsequently took Acetaminophen at 5:00 PM. By 7:00 PM, his temperature was recorded to be 100.6�F, indicating a low-grade fever.
The patient has noticed additional swelling in the scrotum, suspecting an increase in fluid accumulation. The surgical sites from the laparoscopy appear to be healing well, except for the noted discharge and swelling.
The patient is undergoing treatment for multiple myeloma, which is a consideration when assessing potential infection risks.
PHYSICAL EXAM
General: Alert, no acute distress.
Skin: Warm, dry.
Head: Normocephalic, atraumatic.
Neck: Supple, trachea midline.
Eye, Ears, Nose, Mouth, and Throat: Oral mucosa moist.
Cardiovascular: Normal peripheral perfusion, No edema.
Respiratory: Respirations are non-labored.
Gastrointestinal: Abdomen nondistended.
Back: Normal range of motion, Normal alignment.
Musculoskeletal: Normal range of motion, normal strength.
Neurological: Alert and oriented to person, place, time, and situation. No focal neurological deficit observed.
Psychiatric: Cooperative, appropriate mood, and affect.
PROBLEM LIST
Acute Problems:
- Postoperative pain following hernia repair
- Purulent discharge from surgical site
- Low-grade fever
- Scrotal swelling
PLAN
- Perform a CT scan to assess the extent of any postoperative infection.
- Continue monitoring for signs of infection or other complications.
- Administer Acetaminophen as needed for fever.
- Discuss the option of antibiotics depending on the diagnostic findings.
- Evaluate pain management needs, offering additional analgesia if required.
DIFFERENTIAL DIAGNOSIS
The Differential Diagnosis includes, in no particular order and is not limited to:
- Postoperative infection
- Surgical site hematoma or seroma
- Intra-abdominal abscess
- Recurrence of hernia
- Testicular torsion
- Lymphocele
- Cellulitis
- Epididymitis
- Orchitis
- Hydrocele
CARE-UPDATE
01/19/25 - 01:[address] Salvador Ceron regarding the mesh in the site; recommends hospital admission. Allergy to penicillin identified; initiating treatment with vancomycin and flagyl. Plan for patient admission to hospital service.
Disposition:
SUMMARY OF ENCOUNTER
The patient, a 74-year-old male, presented to the emergency department with postoperative abdominal pain, purulent discharge from the surgical site, chills, low-grade fever, and scrotal swelling following recent hernia repair surgery. Considering
the signs of a possible postoperative wound infection, alongside the patients multiple myeloma diagnosis, immediate intervention was necessary. Management included starting antibiotics appropriate for his penicillin allergy and consultation with
general surgery.
DISPOSITION
Admit
ASSESSMENT
The patient is suspected to have a postoperative wound infection, indicated by purulent discharge and fever following recent hernia repair surgery.
MANAGEMENT OF THE PATIENTS CARE WAS DISCUSSED WITH
Consultation with General Surgery was conducted, and they are aware of the potential postoperative wound infection.
PLAN
The patient is to be admitted to the hospital for further evaluation and treatment of a possible postoperative infection. Continue antibiotic therapy with vancomycin and metronidazole due to the penicillin allergy. Monitor closely for signs of
infection resolution or any complications.
MEDICATION RECONCILIATION
- Vancomycin initiated in response to suspected postoperative infection.
- Metronidazole (Flagyl) initiated, considering the patients allergy to penicillin.
MEDICAL DECISION MAKING
- Number and Complexity of Problems Addressed: Chronic conditions affecting care include multiple myeloma. Differential diagnoses considered: postoperative infection, surgical site hematoma or seroma, intra-abdominal abscess, recurrence of hernia,
testicular torsion, lymphocele, cellulitis, epididymitis, orchitis, hydrocele.
- Data:
Category 3: Discussion of management with general surgery regarding the risk of postoperative infection and appropriate antibiotic therapy due to penicillin allergy.
DIAGNOSIS
- Postoperative wound infection (T81.4)
- Penicillin allergy (Z88.0)
Past History
Past History
ED Past Medical History: Cancer (Prostate, multiple myeloma)
Phy Exam
Physical Exam
Physical Exam:
.
Course
Orders/Labs/Results
Orders:
Orders
01/18/25 21:42
Complete Blood Count/With Diff Urgent
Comprehensive Metabolic Panel Urgent
Lactic Acid Q4H
Comment: ON ICE, CANCEL 2ND ORDER IF FIRST LACTIC ACID LEVEL <2
01/18/25 22:28
CT Abd/pelvis W Iv Cont Urgent
Comment:
Reason For Exam: post op drainage
0.9% Sodium Chloride 1000 ml [Nss] 1,000 ml IV BOLUS
01/19/25 00:51
Wound Culture [Wound/Abscess/Other Culture] Urgent
PABLO Source: Abdomen
Specimen Description:
Date Specimen was Collected: 01/19/25
Time Specimen was Collected: 00:48
Comment: around drain
Abnormal Lab Results
01/18/25
21:42
RBC 3.88 L 10^6/uL
(4.70-6.10)
Hgb 12.1 L g/dL
(13.0-18.0)
Hct 36.2 L %
(39.0-52.0)
MCH 31.2 H pg
(27.0-31.0)
RDW 14.7 H %
(11.5-14.5)
Absolute Lymphs (auto) 0.5 L 10^3/uL
(1.2-3.4)
Absolute Monos (auto) 0.8 H 10^3/uL
(0.1-0.6)
Neutrophils % 81.6 H %
(42.2-75.2)
Lymphocytes % 6.5 L %
(20.5-51.1)
Monocytes % 10.8 H %
(1.7-9.3)
BUN 26 H mg/dl
(9-20)
Glucose 136 H mg/dl
(70-99)
01/18/25 21:42
01/18/25 21:42
Vital Signs
Initial and Last Documented VS:
Initial Vital Signs
Temp Pulse Resp BP Pulse Ox
98.9 F 83 18 121/56 98
01/18/25 21:03 01/18/25 21:03 01/18/25 21:03 01/18/25 21:03 01/18/25 21:03
Last Documented Vital Signs
Temp Pulse Resp BP Pulse Ox
98.9 F 83 18 122/56 93
01/18/25 21:03 01/18/25 21:03 01/18/25 21:03 01/18/25 23:00 01/19/25 00:45
*Pulse Oximetry
SaO2: 93
Oxygen Mode of Delivery: Room air
Patient hypoxic: no
*Critical Care Note
Total Time (30-74mins, 75-104mins- exclusive of procedures): Not Applicable
ED Attending Note
-
Portions of this chart may have been created with voice recognition software.� Occasional wrong word or��sound alike� substitutions may have occurred due to the inherent limitations of voice recognition software.
Discharge Plan
Departure
Patient Disposition: Admit
Date of Disposition: 01/19/25
Time of Disposition: 01:19
Admit to: Telemetry
Presentation/result/management discussed w/ accepting MD/DO: Hospitalist
Condition: Good
Discharge Problem:
Post-operative infection
Prescriptions:
No Action
calcium carbonate 600 mg calcium (1,500 mg) Tablet
600 mg PO DAILY
sennosides [senna] 8.6 mg Tablet
17.2 mg PO BID
acyclovir 400 mg Tablet
400 mg PO BID
aspirin 81 mg Tablet,Delayed Release (Dr/Ec)
81 mg PO DAILY
dexamethasone 4 mg Tablet
20 mg PO DIRECTED
Rx Instructions:
TAKE 20MG THE DAY OF and after VELCADE
docusate sodium [Colace] 100 mg Capsule
100 mg PO BID
montelukast [Singulair] 10 mg Tablet
10 mg PO DIRECTED
Rx Instructions:
starting two days before treatment on fridays and contioune one day after treatment (sunday(tx) sunday)
rosuvastatin [Crestor] 20 mg Tablet
20 mg PO QPM
lenalidomide [Revlimid] 25 mg Capsule
25 mg PO DIRECTED
Rx Instructions:
FOR 14 DAY ON AND 7 DAYS OFF
acetaminophen [Tylenol] 325 mg Tablet
650 mg PO Q6HPRN PRN (Reason: take before and after treatment)
famotidine [Pepcid] 20 mg Tablet
20 mg PO DIRECTED
Rx Instructions:
take every sunday before treatment
diphenhydramine HCl [Benadryl] 25 mg Capsule
25 mg PO DAILYPRN PRN (Reason: take the day of treatment before going)
bortezomib [Velcade] 3.5 mg Recon Soln
2.4 mg IV FR
Systane (PF) 0.4-0.3 % Dropperette
1 drp BOTH EYES TIDPRN PRN (Reason: dryness)
Prolia 60 mg/mL Syringe
60 mg SC [id number]
oxycodone 5 mg tablet
5 mg PO Q4HPRN PRN (Reason: breakthrough/severe pain) Qty: 15 0RF
polyethylene glycol 3350 [polyethylene glycol 3350] 17 gram powder in packet
17 grams PO DAILYPRN PRN (Reason: constipation) Qty: 1 0RF
Referrals:
Aaron Nesbitt DO [Family Provider, Family Practice]
Interventions
Interventions:
*Risk Screen - Suicide Last Done: 01/18/25 21:03
*General Assessment Last Done: 01/18/25 21:03
*Neglect/Abuse Screening Last Done: 01/18/25 21:03
*ED- Fall Risk Assessment Last Done: 01/18/25 21:03
*ED COVID-19 Vaccine History Last Done: 01/18/25 21:03
*ED Influenza Vaccine History Last Done: 01/18/25 21:03
ED-Skin Assessment Last Done: 01/18/25 21:46
Discharge Date and Time
Print Language: ROMANIAN
[2025-01-19] MEDS: TYLENOL 1000 MG PO (01:16)
[2025-01-19] MEDS: FLAGYL 500 MG 100 IV (01:17)
--- NOTE | 2025-01-19 01:42 | HPS.HSE ---
Family Physician
-
Family Physician: Aaron Nesbitt
Chief Complaint
-
Postoperative pain
History of Present Illness
This is a 74-year-old with past medical history significant for multiple myeloma and prostate cancer who is status post surgery for incarcerated hernia on January 09 and now presents to the emergency department following discharge with abdominal pain.
The procedure was completed without complications and he was discharged January 09. He reported that he had no issues until early Sunday morning when he had abdominal pain and notable discharge from the surgical site. The discharge was purulent.
He initially applied topical Neosporin. Later he experienced chills and recorded temperature of 100.6 after taking acetaminophen. He called his surgeon and requested he come to the emergency department for evaluation.
Patient reports that his last infusion treatment for his multiple myeloma was 2 days ago.
He reports swelling of the scrotum. The surgical sites look laparoscopy appears to be well-healed except for the noted discharge.
He had a temp of 101, blood pressure 122/58 with a pulse of 83 was satting 90% on room air.
CBC was unremarkable unremarkable. Electrolytes BUN/creatinine were normal.
CT of the abdomen pelvis showing: postsurgical changes related to recent right inguinal hernia surgery, right lower quadrant percutaneous drainage catheter with cracks in inguinal canal and spermatic cord, infiltration of the subcutaneous fat
stranding at drain entry site may signify cellulitis no evidence of abdominal wall abscess collection no soft tissue emphysema.
There is a complex collection of fluid in the right iliac fossa near the internal ring that is a 4.4 x 3.5 x 3.2 cm in size. Likely blood.
No signs of drainable abscess collection.
Medical History
Past Medical History
Past Medical History: Reports Other (Multiple myeloma, prostate cancer)
Past Surgical History: Reports Other (Orthopedic, none relevant)
Social History
Tobacco: Non-smoker
Alcohol: None
Personal:
Living: With Family
Family History
Family History: Not pertinent
Allergies / Home Medications
Allergies reflects when Allergies were last updated in [facility].
Home Medications with original date entered in [facility]
Allergy/Medication List:
Allergies
Allergy/AdvReac Type Severity Reaction Status Date / Time
latex Allergy Itching Verified 01/18/25 21:04
Penicillins Allergy Unknown Verified 01/18/25 21:04
Sulfa (Sulfonamide Allergy Hives Verified 01/18/25 21:04
Antibiotics)
Home Medications
calcium carbonate 600 mg PO DAILY 10/27/24
acetaminophen 325 mg tablet (Tylenol) 650 mg PO Q6HPRN PRN take before and after treatment 01/09/25
acyclovir 400 mg tablet 400 mg PO BID CUSTOMER RETENTION REPRESENTATIVE 01/09/25
aspirin 81 mg tablet,delayed release 81 mg PO DAILY 01/09/25
bortezomib 3.5 mg injection powder for solution (Velcade) 2.4 mg IV FR 01/09/25
denosumab 60 mg/mL subcutaneous syringe (Prolia) 60 mg SC [id number] 01/09/25
dexamethasone 4 mg tablet 20 mg PO DIRECTED 01/09/25
diphenhydramine HCl 25 mg capsule (Benadryl) 25 mg PO DAILYPRN PRN take the day of treatment before going 01/09/25
docusate sodium 100 mg capsule (Colace) 100 mg PO BID 01/09/25
famotidine 20 mg tablet (Pepcid) 20 mg PO DIRECTED 01/09/25
lenalidomide 25 mg capsule (Revlimid) 25 mg PO DIRECTED 01/09/25
montelukast 10 mg tablet (Singulair) 10 mg PO DIRECTED 01/09/25
peg 400-propylene glycol (PF) 0.4 %-0.3 % eye drops in a dropperette (Systane (PF)) 1 drp BOTH EYES TIDPRN PRN dryness 01/09/25
rosuvastatin 20 mg tablet (Crestor) 20 mg PO QPM 01/09/25
sennosides 8.6 mg tablet (senna) 17.2 mg PO BID 01/09/25
oxycodone 5 mg tablet 5 mg PO Q4HPRN PRN breakthrough/severe pain #15 tabs 01/10/25
polyethylene glycol 3350 17 gram oral powder packet 17 grams PO DAILYPRN PRN constipation #1 packet 01/10/25
Review of Systems
-
Constitutional: Reports Fever
EENT: Reports No Symptoms
Respiratory: Reports No Symptoms
Cardiac: Reports No Symptoms
Abdomen/GI: Reports Abdominal Pain
: Reports No Symptoms and Other (scrotal swelling)
Musculoskeletal: Reports No Symptoms
Skin: Reports No Symptoms and Other
Neurological: Reports No Symptoms
Endocrine: Reports No Symptoms
Hematologic/Lymphatic: Reports No Symptoms
Psych: Reports No Symptoms
Physical Exam
Vital Signs
Vital Signs
Temp Pulse Resp BP Pulse Ox
101 F H 83 18 122/56 93
01/19/25 01:09 01/18/25 21:03 01/18/25 21:03 01/18/25 23:00 01/19/25 01:02
Physical Exam
General: Well Developed
HEENT: NormoCephalic
Respiratory: Non Labored Respirations
GI: Soft, Non Distended, Tender and Other (Left-sided DIONNE drain with serosanguineous drainage. Incision site with erythema and purulent drainage with some blood. Slightly tender to palpation.)
Rectal: Deferred by Provider
Genito-urinary: Deferred by me
Musculoskeletal: No Clubbing, No Cyanosis and No Edema
Neuro: AO x 3 and Nonfocal/grossly intact
Hematologic/Lymphatic: No Lymphadenopathy
Laboratory Results
-
01/18/25 21:42
01/18/25 21:42
Laboratory Results
Lactic Acid Cancelled 01/18/25 22:15
Total Bilirubin 0.8 mg/dl (0.2-1.3) 01/18/25 21:42
AST 23 U/L (17-59) 01/18/25 21:42
ALT 22 U/L (0-50) 01/18/25 21:42
Alkaline Phosphatase 81 U/L (38-126) 01/18/25 21:42
Data Reviewed
-
CT Scan: Report Reviewed by me
Lab Data: Labs Reviewed by me
Old Records: Reviewed
Impression/Plan
-
IMPRESSION:
74-year-old with history of multiple myeloma on chemotherapy who presents to the emergency department post discharge after surgical treatment of incarcerated hernia without complication with abdominal pain, fever, erythema and drainage at drain
entry site with discharge from the surgical site. Fever to 101, CT scan showing no drainable collection but surgical site infection highly likely. Drain tube with serosanguineous drainage mostly clear and does not look infected or foul-smelling.
Suspect local skin and subcutaneous tissue infection. Immunocompromised with history of multiple myeloma and currently on Revlimid and bosutinib infusions.
PLAN:
Surgical site infection complicated by multiple myeloma treatment
- Admit to MedSurg
-Blood cultures, wound cultures
- N.p.o. for now pending surgical eval
- coverage for skin mellisa and anaerobes with IV Flagyl/vanco
- mrsa swab,
- gentle hydration
- ID consult
- surgery consult
DVT PPX - lovenox sq
Code status - Full code
[2025-01-19] MEDS: VANCOCIN 540 MG IV (02:28)
[2025-01-19 02:30] VITALS: BP 107/36
[2025-01-19 03:00] VITALS: BP 120/57; BMI 23.7
[2025-01-19] MEDS: LR 1000 IV (03:28)
--- NOTE | 2025-01-19 04:44 | TRANSFER ---
Late note due to pt care:
Pt transfered form the ED. P ambulated with ax2 to the bed. RLQ DIONNE drain in place, serosang output, Purulent drainage around the insertion site. at bedside, supportive of pt. IV in place with Vanc running. Pt oriented to the room, use of the
call garcia and location fo the BR. Call garcia and belongings within reach. Bed in the lowest position.
[2025-01-19 06:56] LABS: Hematocrit 29.8 % (39.0-52.0); Hemoglobin 10.2 g/dL (13.0-18.0); Mean Corp Hgb Conc. 34.2 g/dL (33.0-37.0); Mean Corpuscular Volume 92.5 fL (80.0-94.0); Platelet Count 172 10^3/uL (130-400); Red Cell Dist. Width 14.4 % (11.5-14.5)
[2025-01-19 07:09] LABS: Blood Urea Nitrogen 18 mg/dl (9-20); Calcium 7.9 mg/dl (8.4-10.2); Carbon Dioxide 23 mmol/L (22-30); Chloride 113 mmol/L (98-107); Estimated Creatinine Clearance 96 ml/min; Glucose 96 mg/dl (70-99); Potassium 3.6 mmol/L (3.5-5.1); Sodium 138 mmol/L (135-145); eGFR > 60.00
[2025-01-19 07:23] VITALS: BP 102/52
[2025-01-19] MEDS: ASPIR LOW (ENTERIC COATED) 81 MG PO (08:38)
[2025-01-19] MEDS: ZOVIRAX 400 MG PO ×2 (08:39→20:31)
[2025-01-19] MEDS: COLACE 100 MG PO (08:39)
--- NOTE | 2025-01-19 09:11 | VNURNOTE ---
Addendum entered by Priyanka Angeles RN 01/19/25 12:00:
[facility] Resumption referral placed in [facility].
Original Note:
Chart reviewed. Patient is current with [facility]. Will continue to follow hospital course and DC plans.
--- NOTE | 2025-01-19 09:18 | CM ---
Patient seen at bedside with Neeta
IA completed
Dx: post-op infection
PMH: multiple myeloma and prostate cancer who is status post surgery for incarcerated hernia on January 09
Patient lives in a ranch home with , 2 REESE
plof: Independent, Independent with ADL's
dme: walker
CURRENT with VN, denies Rehab
PCP: Aaron Nesbitt
Pharmacy: [facility] [place]
[facility], CM to continue to follow for dc planning needs
[2025-01-19] MEDS: VIBRAMYCIN 260 MG IV (09:42)
--- NOTE | 2025-01-19 09:58 | W.PN.HOSP.TC ---
Today's Communication/Plan
-
c/w IV Abx
f/w cultures
Assessment / Plan
Assessment / Plan
Physical Exam
General: not in distress, chronically ill looking.
HEENT: Normocephalic
Respiratory: Non Labored Respirations
GI: Soft, Non Distended, Tender and Other (Left-sided DIONNE drain with serosanguineous drainage. Incision site with erythema and purulent drainage with some blood. Slightly tender to palpation.)
Genito-urinary:No Dia
Musculoskeletal: No Clubbing, No Cyanosis and No Edema
Neuro: AO x 3 and Nonfocal/grossly intact
Psych: calm
Surgical site infection complicated by immunosuppression from multiple myeloma treatment
No fever this morning
Less tenderness in site
Ok to remove drain
c/w IV Abx
Culture from wound still pending
Appreciate ID & surgery help
# s/p incarcerated right inguinal hernia repair with mesh on 01/09/[address] Monge
#multiple myeloma treated with Bortezomib (followed by Dr. Leiva/luisa) and prostate ca
being treated with daratumumab/ velcade and dexamethasone along w/ Revlimid
DVT PPX - lovenox sq
Code status - Full code
Total time spent to see the patient, examine the patient, review data and lab results, discuss treatment plan with patient, nursing staff around 55 minutes
Anticipated Discharge: > 48 hours
Subjective/Interval History
-
Date of Service: January 19, 2025
No fever or chills this morning
No chest pain or abd pain
Objective Data
-
Labs:
Laboratory Results
01/18/25 01/19/25
21:42 06:22
WBC 7.1
Hgb 10.2 L
Hct 29.8 L
Plt Count 172
Sodium 137 138
Potassium 3.7 3.6
Chloride 107 113 H
Carbon Dioxide 24 23
BUN 26 H 18
Creatinine 0.8 0.6 L
Glucose 136 H 96
Calcium 8.6 7.9 L
Total Bilirubin 0.8
AST 23
ALT 22
Alkaline Phosphatase 81
Vital Signs:
Vital Signs
Temp Pulse Resp BP Pulse Ox
98.4 F 73 16 102/52 97
01/19/25 07:23 01/19/25 07:23 01/19/25 07:23 01/19/25 07:23 01/19/25 07:23
I&O
01/18/25 01/19/25 01/20/25
06:59 06:59 06:59
Intake Total 260 / 260
Output Total 15 / 15
Balance -15 / -15 260 / 260
--- NOTE | 2025-01-19 10:21 | CON.ID ---
Consultation
-
Date/Time Consultation Requested: 01/19/25 3:00
Date/Time Consultation Performed: 01/19/25 10:23
Requesting Provider: Dr Bryant
Performing Provider: Dr Mireles
Reason for Consultation: surgical site infection
Chief Complaint / Past History
Chief Complaint
post operative pain
History of Present Illness
Mr Ayala is a 74 year old male with history of multiple myeloma and prostate cancer who underwent Robotic assisted laparoscopic THOMAS repair, right inguinal hernia with mesh on 01/09. He was initially discharged same day and had no pain then early
Sunday AM he developed purulent drainage from the surgical site, chills; he called his surgeon who referred him to the ER for further assessment. Since arrival here he has been febrile to 101, bp overall stable, WBC 7.5 now 7.1, hgb 10.2, plt 172,
L shift noted, Cr 0.8, t bili 0.8, ast 23, alt 22, alk phos 81, CT abdomen/pelvis fluid collection 3.8x2.4x1.8 in the right lower quadrant - mildly heterogeneous - possibly blood products. He has an unknown allergy to penicillin and has been
started on doxycycline. A wound culture has been taken, no blood cultures done yet.
He doesnt recall what happened when he had penicillin as a child.
Past History
Additional Past Medical History:
Multiple myeloma, prostate cancer
Additional Past Surgical History:
as per hpi
also orthopedic procedures
Allergy History:
latex Allergy (Verified 01/18/25 21:04)
Itching
Penicillins Allergy (Verified 01/18/25 21:04)
Unknown
Sulfa (Sulfonamide Antibiotics) Allergy (Verified 01/18/25 21:04)
Hives
Medications Reviewed: Yes
Social History
Tobacco: Non-Smoker
Alcohol: None
Personal:
Family History
Family History: Not Pertinent
Review of Systems
Review of Systems
Constitutional: Reports Fever
EENT: Reports No Symptoms
Respiratory: Reports No Symptoms
Cardiac: Reports No Symptoms
Abdomen/GI: Reports Abdominal Pain
: Reports No Symptoms and Other (scrotal swelling)
Musculoskeletal: Reports No Symptoms
Skin: Reports No Symptoms and Other
Neurological: Reports No Symptoms
Endocrine: Reports No Symptoms
Hematologic/Lymphatic: Reports No Symptoms
Psych: Reports No Symptoms
Vital Signs
Temp Pulse Resp BP Pulse Ox
98.4 F 73 16 102/52 97
01/19/25 07:23 01/19/25 07:23 01/19/25 07:23 01/19/25 07:23 01/19/25 07:23
Physical Exam
Physical Exam
Constitutional: No Acute Distress
Cardiovascular: Regular Rate and S1/S2; Negative Murmur or Rub
Pulmonary: Clear and Symmetric; Negative Wheezes, Rales or Rhonchi
Gastrointestinal: Soft, Non Tender, Non Distended and Normal Bowel Sounds
Skin: Warm and Dry; Negative Rash or Jaundice
Wound: Other (scant amount of purulent drainage on drain site dressing)
Lab / Diagnostic Study Results
01/19/25 06:22
01/19/25 06:22
Abs Immat Gran (auto) 0.0 10^3/uL (0-0.05) 01/18/25 21:42
Absolute Neuts (auto) 6.1 10^3/uL (1.4-6.5) 01/18/25 21:42
Absolute Lymphs (auto) 0.5 10^3/uL (1.2-3.4) L 01/18/25 21:42
Absolute Monos (auto) 0.8 10^3/uL (0.1-0.6) H 01/18/25 21:42
Absolute Basos (auto) 0.0 10^3/uL (0-0.2) 01/18/25 21:42
Immature Gran % 0.5 % (0-0.5) 01/18/25 21:42
Neutrophils % 81.6 % (42.2-75.2) H 01/18/25 21:42
Lymphocytes % 6.5 % (20.5-51.1) L 01/18/25 21:42
Monocytes % 10.8 % (1.7-9.3) H 01/18/25 21:42
Eosinophils % 0.1 % (0-6) 01/18/25 21:42
Basophils % 0.5 % (0-2) 01/18/25 21:42
Lactic Acid Cancelled 01/18/25 22:15
Microbiology Results
Micro:
01/19/25 06:22 MRSA Screen - Pending
Nose
01/19/25 00:51 Wound Culture - Pending
Abdomen Gram Stain - Pending
Assessment / Plan
Abdominal wall infection
Reported unknown allergy to penicillin
Recent repair of incarcerated hernia with mesh
- start vancomycin, zosyn; stop doxycycline
- obtain blood cultures x2
- wound culture is in progress
- drain was removed by surgeon this AM - fluid was serosanguinous by report
Care Review
Plan reviewed with: Physician (Dr Smith - superficial abdominal wall abscess)
--- NOTE | 2025-01-19 11:26 | CON.GS ---
Addendum entered and electronically signed by Ezio Monge MD 01/19/25 19:05:
I saw and examined the patient independently.
The Leadite Heater's note was reviewed and I agree with the note, assessment and plan except where noted below.
Comment: This is a 74-year-old male with a history of multiple myeloma and prostate cancer who presented with an incarcerated right inguinal hernia who was taken to the OR on 01/09/2025 for a robotic incarcerated right inguinal hernia repair with
mesh (Saleem/Jl). Drain placed at the time of surgery due to the size of the hernia defect. The patient was being monitored as an outpatient for his drain output which was still fairly high up until Sunday over 20 cc/day. Sunday started
having right groin pain and then chills which prompted him to come in to our ER. Here he was noted to have pus around the drain as well as a collection in the surgical space on CT but no obvious sign of an abscess. His abdominal wall is somewhat
inflamed on the CT scan and there was noted to be pus around the drain on exam this morning while the output from the drain itself was serous. We elected to remove the drain at bedside to allow the abdominal wall collection to heal as I believe
this is likely the source of the infection.
ID consult, appreciate their input. Broad-spectrum antibiotics
Patient is aware that there is a chance he may need to go back to the operating room for explantation of mesh and washout but we will continue to follow him here for a few days before making this decision.
All questions answered, patient agreeable to plan of care above.
Okay for diet. Out of bed and ambulate as able.
DVT prophylaxis.
Original Note:
Consultation
-
Date/Time Consultation Performed: 01/19/25814
Medical History
-
Chief Complaint: drainage around kyree drain
History of Present Illness:
Mr Ayala is a 74 yo male with a h/o multiple myeloma treated with Bortezomib (followed by Dr. Leiva/luisa) and prostate ca who presented earlier this month with an incarcerated right inguinal hernia and was taken to the OR on 01/09/25 for RAL
elizabeth repair with mesh. He did well in the immediate post operative course and was discharged to home with KYREE drain in place to continue his recovery. This weekend, he noted some greenish drainage around his KYREE drain and increasing discomfort to the
site and presented through the ED for evaluation. He was noted to be febrile to 101 shortly after presentation. The drain is draining serous drainage and no longer with purulence around it. Some induration noted at the site.
Past Medical History
Past Medical History: Cancer (mutiple myeloma, prostate cancer) and GERD
Past Surgical History: Hernia Repair (01/09/25 RAL right inguinal hernia repair with mesh)
Social History
Tobacco: Former Smoker
Alcohol: None
Family History
Family History: Reviewed & Not Pertinent
Allergies / Home Medications
Allergy/AdvReac Type Severity Reaction Status Date / Time
latex Allergy Itching Verified 01/18/25 21:04
Penicillins Allergy Unknown Verified 01/18/25 21:04
Sulfa (Sulfonamide Allergy Hives Verified 01/18/25 21:04
Antibiotics)
�Medication �Instructions �Recorded �Confirmed �Type
calcium carbonate 600 mg PO DAILY 10/27/24 01/19/25 History
acetaminophen 325 mg tablet 650 mg PO Q6HPRN PRN take before 01/09/25 01/19/25 History
(Tylenol) and after treatment
acyclovir 400 mg tablet 400 mg PO BID GEOGRAPHICAL HISTORIAN 01/09/25 01/19/25 History
aspirin 81 mg tablet,delayed 81 mg PO DAILY 01/09/25 01/19/25 History
release
bortezomib 3.5 mg injection powder 2.4 mg SC FR 01/09/25 01/19/25 History
for solution (Velcade)
denosumab 60 mg/mL subcutaneous 60 mg SC [id number] 01/09/25 01/19/25 History
syringe (Prolia)
dexamethasone 4 mg tablet 20 mg PO DIRECTED 01/09/25 01/19/25 History
diphenhydramine HCl 25 mg capsule 25 mg PO DAILYPRN PRN Velcade 01/09/25 01/19/25 History
(Benadryl) Pre-Admin
docusate sodium 100 mg capsule 100 mg PO BID 01/09/25 01/19/25 History
(Colace)
famotidine 20 mg tablet (Pepcid) 20 mg PO DIRECTED 01/09/25 01/19/25 History
lenalidomide 25 mg capsule 25 mg PO DIRECTED 01/09/25 01/19/25 History
(Revlimid)
montelukast 10 mg tablet 10 mg PO DIRECTED 01/09/25 01/19/25 History
(Singulair)
peg 400-propylene glycol (PF) 0.4 1 drp BOTH EYES TIDPRN PRN dryness 01/09/25 01/19/25 History
%-0.3 % eye drops in a dropperette
(Systane (PF))
rosuvastatin 20 mg tablet (Crestor) 20 mg PO QPM 01/09/25 01/19/25 History
sennosides 8.6 mg tablet (senna) 17.2 mg PO BID 01/09/25 01/19/25 History
Review of Systems
-
History Source: Patient and Family
All other systems: Negative unless noted
A 10 point review of systems was completed, and was negative except as per HPI.
Physical Exam
Vital Signs
Temp Pulse Resp BP Pulse Ox
98.4 F 73 16 102/52 94
01/19/25 07:23 01/19/25 07:23 01/19/25 07:23 01/19/25 07:23 01/19/25 08:30
01/18/25 01/19/25 01/20/25
06:59 06:59 06:59
Actual Weight 66.451 kg
Body Mass Index (BMI) 23.7
Lab Results
01/19/25 06:22
01/19/25 06:22
WBC 7.1 10^3/uL (4.8-10.8) 01/19/25 06:22
Hgb 10.2 g/dL (13.0-18.0) L 01/19/25 06:22
Hct 29.8 % (39.0-52.0) L 01/19/25 06:22
Plt Count 172 10^3/uL (130-400) 01/19/25 06:22
Abs Immat Gran (auto) 0.0 10^3/uL (0-0.05) 01/18/25 21:42
Neutrophils % 81.6 % (42.2-75.2) H 01/18/25 21:42
Physical Exam
General: Well Developed and Well Nourished
HEENT: Moist Mucous Membranes
Respiratory: Non Labored Respirations
GI: Soft, Non Distended and Tender (mild to RLQ)
Genito-urinary: Other (No scrotal tenderness or erythema)
Skin: Warm and Other (KYREE with serous outputs, no drainage around tube. Mild induration to site noted. )
Neuro: Awake, Alert and AO x 3
Psych: Calm
Data Reviewed
-
CT Scan: Image Personally Visualized and interpreted, Report Reviewed by me, Discussed with Physician, Discussed with Nurse, Discussed with Patient and Discussed with Family
Labs: Labs Reviewed by me, Discussed with Physician, Discussed with Nurse and Discussed with Patient
Old Records: Reviewed
Assessment / Plan
-
Mr Ayala is a 74 yo male with a h/o multiple myeloma treated with Bortezomib (followed by Dr. Leiva/luisa) and prostate ca who presented earlier this month with an incarcerated right inguinal hernia and was taken to the OR on 01/09/25 for RAL
elizabeth repair with mesh. He was discharged to home with KYREE and presents for abnormal drainage around the drain with temp of 101. Localized induration noted. He has no leukocytosis. CT imaging reviewed with post operative changes as expected with some
heterogenous fluid at the site without discrete abscess. VSS, no further fevers.
Plan:
KYREE d/cd at bedside. Cx sent from ER and pending.
Ok for regular diet
ID following: abx with zosyn and vanc
Lovenox for sq vte ppx
--- NOTE | 2025-01-19 12:31 | PHA.VAN.IN ---
Assessment
- Assessment
Renal Function: Appears similar to baseline (Scr 0.8-->0.6)
Maximum Temperature: 101F
Concomitant Antimicrobials: Piperacillin/tazobactam
AUC Dosing Plan
- Dosing Variables
Dosing Weight (kg): 66.5
Dosing CrCl (ml/min): 75-96
Vd coefficient (L/kg): 0.7
- Empiric Dosing
Initial / Loading Dose: Vancomycin 2000mg - given 01/19 at 0230
Maintenance Regimen: Vancomycin 750mg IV Q12h
Estimated AUC (mcg*h/mL): 400-500
Estimated Peak (mcg*h/mL): 25-29
Estimated Trough (mcg/ml): 10-14
Estimated Half Life (H): 8-10
- Monitoring
No levels ordered at this time: Consider levels in the next few days.
Pharmacokinetics Vancomycin I
- -
Patient Age: 74
Patient Sex: Male
Vancomycin Day #: 1
Indication: Skin And Soft Tissue
Requesting Provider: Dr. Mireles
Pertinent Antimicrobial Allergies:
Penicillins Allergy (Verified 01/18/25 21:04)
Unknown
Sulfa (Sulfonamide Antibiotics) Allergy (Verified 01/18/25 21:04)
Hives
Height / Weight:
Height 5 ft 6 in
Actual Weight 66.451 kg
Pertinent Past Medical History: multiple myeloma and prostate cancer, s/p hernia with mesh 01/09
- Vital Signs / Lab Results
Temp Pulse Resp BP Pulse Ox
98.4 F 73 16 102/52 94
01/19/25 07:23 01/19/25 07:23 01/19/25 07:23 01/19/25 07:23 01/19/25 08:30
Lab Results - Hematology
01/18/25 01/19/25
21:42 06:22
WBC 7.5 7.1
Lab Results - Chemistry
01/18/25 01/19/25
21:42 06:22
BUN 26 H 18
Creatinine 0.8 0.6 L
Estimated Creat Clear 96
Albumin 3.7
01/18/25 01/18/25
21:42 22:15
Lactic Acid 1.6 Cancelled
Microbiology Results
01/19/25 00:51 Gram Stain - Preliminary
Abdomen
[2025-01-19] MEDS: ZOSYN 50 IV ×3 (12:34→23:10)
[2025-01-19 15:20] VITALS: BP 118/54
[2025-01-19] MEDS: CRESTOR 20 MG PO (18:00)
[2025-01-19] MEDS: LOVENOX 40 MG SC (18:00)
[2025-01-19] MEDS: VANCOCIN 150 IV (18:32)
[2025-01-19 18:41] LABS: Hepatitis C Antibody Negative (Negative)
[2025-01-19] MEDS: SENOKOT-S 1 TABLET PO (20:31)
[2025-01-19] MEDS: COLACE PO (20:31)
[2025-01-19] MEDS: TYLENOL 650 MG PO (20:35)
[2025-01-19 23:17] VITALS: BP 105/50
[2025-01-19 23:37] VITALS: BP 91/38
[2025-01-19] MEDS: NSS 1000 IV (23:55)
[2025-01-20] VITALS (9 sets, daily range): BP systolic 90–135; BP diastolic 32–67
--- NOTE | 2025-01-20 00:24 | PTCARENOTE ---
Addendum entered by Ai Kaiser RN 01/20/25 05:23:
NSS 1,000ml @ 150 bolus ordered and initiated. Care ongoing.
Addendum entered by Ai Kaiser RN 01/20/25 05:12:
0502 vitals: 102/40, pr 69, temp 98.2. S/p bolus.
Addendum entered by Ai Kaiser RN 01/20/25 02:55:
Pt placed on tele d/y hypotension. Normal sinus rhythm to sinus jo. Care ongoing.
Addendum entered by Ai Kaiser RN 01/20/25 02:19:
0139 oral temp 99.9.
0209 vitals: 91/32, pr 74, Map 52, 98% on room air, rr 16, temp 99.7. TT Patricia, STORE GIFT WRAP ASSOCIATE. Will reassess once bolus is completed at 0455.
Addendum entered by Ai Kaiser RN 01/20/25 01:14:
0055 vitals: 91/41, pr 74, 98% room air, rr 15, temp 100.7. TT Patricia, STORE GIFT WRAP ASSOCIATE. IV Ofirmev ordered and administered at 0109. Care ongoing.
Original Note:
Pt had oral temp of 100.7 at 2035, prn tylenol given per order. Around 2337 pt spouse noticed pt being extra sleepy and drowsy. Pt with no complaints. Vitals at 2337: 91/38, pr 72, 98% on room air, rr 16, temp 99.3. TT Patricia, STORE GIFT WRAP ASSOCIATE. 1L NSS ordered to
run as bolus at 200mL/hr and lactic acid ordered. IVF initiated and lactic acid drawn and sent at 2355. Lactic acid resulted 0.8. Care ongoing.
[2025-01-20] MEDS: OFIRMEV 100 IV (01:09)
[2025-01-20] MEDS: ZOSYN 50 IV ×3 (05:03→19:49)
[2025-01-20] MEDS: NSS 1000 IV (05:23)
[2025-01-20] MEDS: VANCOCIN 150 IV ×2 (05:37→17:33)
--- NOTE | 2025-01-20 06:27 | W.PN.UPDATE ---
Update Note
Progress Note Update
Multiple myeloma on biologics (had velcade and darcalex on Sun) Revlimid last dose 01/07 due �but held for surgery.� Has post op wound infection may need mesh removed. BP 90-100s systolic. IVF boluses Lethargic. Lactic acid 0.8. here.�
[2025-01-20 07:46] LABS: Hematocrit 27.8 % (39.0-52.0); Hemoglobin 9.1 g/dL (13.0-18.0); Mean Corp Hgb Conc. 32.7 g/dL (33.0-37.0); Mean Corpuscular Volume 94.9 fL (80.0-94.0); Platelet Count 155 10^3/uL (130-400); Red Cell Dist. Width 14.6 % (11.5-14.5)
[2025-01-20 08:04] LABS: ALT (SGPT) 20 U/L (0-50); AST (SGOT) 16 U/L (17-59); Albumin 2.7 g/dl (3.5-5.0); Alkaline Phosphatase 87 U/L (38-126); Blood Urea Nitrogen 13 mg/dl (9-20); Calcium 7.7 mg/dl (8.4-10.2); Carbon Dioxide 26 mmol/L (22-30); Chloride 110 mmol/L (98-107); Estimated Creatinine Clearance 72 ml/min; Glucose 97 mg/dl (70-99); Magnesium 1.9 mg/dl (1.6-2.3); Potassium 3.5 mmol/L (3.5-5.1); Sodium 140 mmol/L (135-145); Total Protein 5.3 g/dl (6.3-8.2); eGFR > 60.00
[2025-01-20] MEDS: ASPIR LOW (ENTERIC COATED) 81 MG PO (08:56)
[2025-01-20] MEDS: ZOVIRAX 400 MG PO ×2 (08:56→19:46)
[2025-01-20] MEDS: COLACE 100 MG PO ×2 (08:56→19:47)
[2025-01-20] MEDS: SENOKOT-S 1 TABLET PO (09:04)
--- NOTE | 2025-01-20 09:55 | W.PN.HOSP.TC ---
Today's Communication/Plan
-
IVF
IV abx
Assessment / Plan
Assessment / Plan
Physical Exam
General: not in distress, chronically ill looking.
HEENT: Normocephalic
Respiratory: Non Labored Respirations
GI: Soft, Non Distended, Tender and Other (Left-sided DIONNE drain with serosanguineous drainage. Incision site with erythema and purulent drainage with some blood. Slightly tender to palpation.)
Genito-urinary:No Dia
Musculoskeletal: No Clubbing, No Cyanosis and No Edema
Neuro: AO x 3 and Nonfocal/grossly intact
Psych: calm
Surgical site infection complicated by immunosuppression from multiple myeloma treatment
Sepsis POA ( fever/ cellulitis, high neutrophils) with evolving Septic shock
Blood pressure responded to IVF
No fever this morning
Less tenderness in site
Blood culture is pending.
c/w IV Abx
Culture from wound still pending
MRSA screen is negative
Appreciate ID & surgery help
# s/p incarcerated right inguinal hernia repair with mesh on 01/09/[address] Monge
Drain was removed 01/19.
#multiple myeloma treated with Bortezomib (followed by Dr. Leiva/luisa) and prostate ca
being treated with daratumumab/ velcade and dexamethasone along w/ Revlimid
consulted oncology
DVT PPX - lovenox sq
Code status - Full code
Total time spent to see the patient, examine the patient, review data and lab results, discuss treatment plan with patient, nursing staff around 55 minutes
Anticipated Discharge: > 48 hours
Subjective/Interval History
-
Date of Service: January 20, 2025
He reported weakness
Low blood pressure at night
Objective Data
-
Labs:
Laboratory Results
01/20/25
06:23
WBC 7.3
Hgb 9.1 L
Hct 27.8 L
Plt Count 155
Sodium 140
Potassium 3.5
Chloride 110 H
Carbon Dioxide 26
BUN 13
Creatinine 0.8
Glucose 97
Calcium 7.7 L
Total Bilirubin 0.6
AST 16 L
ALT 20
Alkaline Phosphatase 87
Vital Signs:
Vital Signs
Temp Pulse Resp BP Pulse Ox
99.1 F 78 16 96/51 93
01/20/25 07:30 01/20/25 07:30 01/20/25 07:30 01/20/25 07:30 01/20/25 07:30
I&O
01/19/25 01/20/25 01/21/25
06:59 06:59 06:59
Intake Total 3320 / 3320
Output Total 1400 / 1400
Balance -1919
--- NOTE | 2025-01-20 09:57 | PHA.VAN.FU ---
Vancomycin Assessment / Plan
- Assessment
Renal Function: Stable
WBC's are: WNL
Concomitant Antimicrobials: piperacillin/tazobactamy; chronic acyclovir
- Dosing Plan
Continue: Vanc 750mg Q12H
- Monitoring Plan
No level(s) ordered at this time: consider levels in next few days
- Follow Up
Pharmacy will continue to follow.
Vancomycin Follow UP
- -
Patient Age: 74
Patient Sex: Male
Vancomycin Day #: 2
Indication: Skin And Soft Tissue
Requesting Provider: Dr. Mireles
Pertinent Antimicrobial Allergies:
Penicillins - Unknown
Sulfa (Sulfonamide Antibiotics) - Hives
Height / Weight:
Height 5 ft 6 in
Actual Weight 66.451 kg
Pertinent Past Medical History: Multiple Myeloma and Prostate Cancer
- Vital Signs / Lab Results
Temp Pulse Resp BP Pulse Ox
99.1 F 78 16 96/51 93
01/20/25 07:30 01/20/25 07:30 01/20/25 07:30 01/20/25 07:30 01/20/25 07:30
Lab Results - Hematology
01/18/25 01/19/25 01/20/25
21:42 06:22 06:23
WBC 7.5 7.1 7.3
Lab Results - Chemistry
01/18/25 01/19/25 01/20/25
21:42 06:22 06:23
BUN 26 H 18 13
Creatinine 0.8 0.6 L 0.8
Estimated Creat Clear 96 72
Albumin 3.7 2.7 L
01/18/25 01/18/25 01/20/25
21:42 22:15 00:00
Lactic Acid 1.6 Cancelled 0.8
Microbiology Results
01/19/25 06:22 MRSA Screen - Final
Nose No Methicillin Resistant Staphylococcus aureus isolated.
01/19/25 00:51 Gram Stain - Preliminary
Abdomen
--- NOTE | 2025-01-20 11:41 | CON.ONC ---
Consultation
-
Date Consultation Requested: 01/20/25
Date Consultation Performed: 01/20/25
Requesting Provider: Dr Silva Morris
Performing Provider: Dr Keri Gonzalez
Reason for Consultation: myeloma
Impression
Impression
post-op wound infection, s/p RIH repair w/ mesh on 01/09/25
multiple myeloma, on daraRVd per Dr. Leiva
anemia, acute
Plan
Plan
Mgmt of post-op wound per surgery, ID
Revlimid on hold; plans to resume myeloma therapy TBD - currently on schedule for 01/23, but will likely need to postpone
Monitor CBC - anemia developed since admission, likely from procedures, dilution, and marrow suppression from infection/abx
Patient History
History of Present Illness
Yvon is a 74 yo w/ myeloma, on treatment with daratumumab, velcade, revlimid and dexamethasone under the care of Dr. Leiva, with recent labs showing a positive response to therapy, which started in November 2024.
He was aditted in early Jan 2025 with incarcerated right inguinal hernia, for which he underwent surgery w/ drain placement on 01/09/25. He was d/c'd on POD#1 with a post-op drain, and was doing well until this past weekend, when he noted signs of
infection including prurulent drainage. CT confirmed inflammation and fluid in the surgical bed and surrounding the drain, which was revoved. He was admitted and is receiving IV antibiotics.
Labs are noted for progressive anemia, with hgb of 9.1 today. Hgb was 12.1 at admission.
He's feeling a little better this am, appetite is poor, but starting to improve.
Past-Medical/Surgical History
Past Medical History: Reports Other (Multiple myeloma, prostate cancer)
Past Surgical History: Reports Other (Orthopedic, none relevant)
Social History
Tobacco: Non-smoker
Alcohol: None
Personal:
Living: With Family
Family History
Family History: Not pertinent
Patient Medication
�Medication �Instructions �Recorded �Confirmed �Last Taken �Type
calcium carbonate 600 mg PO DAILY 10/27/24 01/19/25 01/18/25 History
acetaminophen 325 mg tablet 650 mg PO Q6HPRN PRN take before 01/09/25 01/19/25 01/18/25 History
(Tylenol) and after treatment
acyclovir 400 mg tablet 400 mg PO BID [facility] 01/09/25 01/19/25 01/18/25 History
aspirin 81 mg tablet,delayed 81 mg PO DAILY 01/09/25 01/19/25 01/18/25 History
release
bortezomib 3.5 mg injection powder 2.4 mg SC FR 01/09/25 01/19/25 01/16/25 History
for solution (Velcade)
denosumab 60 mg/mL subcutaneous 60 mg SC [id number] 01/09/25 01/19/25 2 Weeks Ago History
syringe (Prolia) ~12/26/24
dexamethasone 4 mg tablet 20 mg PO DIRECTED 01/09/25 01/19/25 01/17/25 History
diphenhydramine HCl 25 mg capsule 25 mg PO DAILYPRN PRN Velcade 01/09/25 01/19/25 01/16/25 History
(Benadryl) Pre-Admin
docusate sodium 100 mg capsule 100 mg PO BID 01/09/25 01/19/25 01/18/25 History
(Colace)
famotidine 20 mg tablet (Pepcid) 20 mg PO DIRECTED 01/09/25 01/19/25 01/16/25 History
lenalidomide 25 mg capsule 25 mg PO DIRECTED 01/09/25 01/19/25 01/07/25 History
(Revlimid)
montelukast 10 mg tablet 10 mg PO DIRECTED 01/09/25 01/19/25 01/17/25 History
(Singulair)
peg 400-propylene glycol (PF) 0.4 1 drp BOTH EYES TIDPRN PRN dryness 01/09/25 01/19/25 01/18/25 History
%-0.3 % eye drops in a dropperette
(Systane (PF))
rosuvastatin 20 mg tablet (Crestor) 20 mg PO QPM 01/09/25 01/19/25 01/18/25 History
sennosides 8.6 mg tablet (senna) 17.2 mg PO BID 01/09/25 01/19/25 01/18/25 History
Active Medications
Generic Name Dose Route Start Last Admin
Trade Name Freq PRN Reason Stop Dose Admin
Acetaminophen 650 mg 01/19/25 03:00 01/19/25 20:35
Acetaminophen 325 Mg Tablet PO 02/16/25 02:59 650 mg
Q4HPRN PRN Administration
mild pain/BLOUNT/temp> 100.4F
Acyclovir Sodium 400 mg 01/19/25 08:00 01/20/25 08:56
Acyclovir Sodium 200 Mg Capsule PO 02/16/25 07:59 400 mg
BID TALITA Administration
Aspirin 81 mg 01/19/25 08:00 01/20/25 08:56
Aspirin 81 Mg (Enteric Coated) Tablet PO 02/16/25 07:59 81 mg
DAILY TALITA Administration
Bisacodyl 10 mg 01/19/25 03:00
Bisacodyl 10 Mg Rectal Suppository RECTAL 02/16/25 02:59
[id number] PRN
constipation
Docusate Sodium 100 mg 01/19/25 08:00 01/20/25 08:56
Docusate Sodium 100 Mg Capsule PO 02/16/25 07:59 100 mg
BID TALITA Administration
Enoxaparin Sodium 40 mg 01/19/25 18:00 01/19/25 18:00
Enoxaparin Sodium 40 Mg/0.4 Ml Syringe SC 02/16/25 17:59 40 mg
QPM TALITA Administration
Hydromorphone HCl 0.5 mg 01/19/25 03:00
Hydromorphone 0.5 Mg/0.5 Ml Syringe IV 02/02/25 02:59
Q4HPRN PRN
severe pain
Piperacillin Sod/Tazobactam Sod 3.375 gram in 50 mls @ 100 mls/hr 01/19/25 12:00 01/20/25 05:03
Zosyn IV 50 mls
Q6H TALITA Administration
Vancomycin HCl 750 mg in 150 mls @ 150 mls/hr 01/19/25 18:00 01/20/25 05:37
Vancocin IV 150 mls
Q12H TALITA Administration
Protocol
Sodium Chloride 1,000 mls @ 150 mls/hr 01/20/25 05:16 01/20/25 05:23
Nss IV 01/20/25 11:55 1,000 mls
BOLUS ONE Administration
Oxycodone HCl 5 mg 01/19/25 03:00
Oxycodone 5 Mg Regular Release Tablet PO 02/02/25 02:59
Q4HPRN PRN
moderate pain
Rosuvastatin Calcium 20 mg 01/19/25 18:00 01/19/25 18:00
Rosuvastatin (Crestor) 20 Mg Tablet PO 02/16/25 17:59 20 mg
QPM TALITA Administration
Senna/Docusate Sodium 1 tablet 01/19/25 03:00 01/20/25 09:04
Docusate W/Senna (Laura-Colace) Tablet PO 02/16/25 02:59 1 tablet
BIDPRN PRN Administration
constipation
Sodium Chloride 0 flush 01/19/25 04:00
Sodium Chloride 0.9% (Flush) Syringe IV 02/16/25 03:59
PER PROTOCOL TALITA
Review of Systems
-
History Source: Patient
All Other Systems: Not reviewed unless documented
Physical Exam
-
General: Well Developed and Well Nourished
Labs
Lab Results
WBC 7.3 10^3/uL (4.8-10.8) 01/20/25 06:23
RBC 2.93 10^6/uL (4.70-6.10) L 01/20/25 06:23
Hgb 9.1 g/dL (13.0-18.0) L 01/20/25 06:23
Hct 27.8 % (39.0-52.0) L 01/20/25 06:23
MCV 94.9 fL (80.0-94.0) H 01/20/25 06:23
MCH 31.1 pg (27.0-31.0) H 01/20/25 06:23
MCHC 32.7 g/dL (33.0-37.0) L 01/20/25 06:23
RDW 14.6 % (11.5-14.5) H 01/20/25 06:23
Plt Count 155 10^3/uL (130-400) 01/20/25 06:23
MPV 10.8 fL (7.4-10.4) H 01/20/25 06:23
Abs Immat Gran (auto) 0.0 10^3/uL (0-0.05) 01/18/25 21:42
Absolute Neuts (auto) 6.1 10^3/uL (1.4-6.5) 01/18/25 21:42
Absolute Lymphs (auto) 0.5 10^3/uL (1.2-3.4) L 01/18/25 21:42
Absolute Monos (auto) 0.8 10^3/uL (0.1-0.6) H 01/18/25 21:42
Absolute Eos (auto) 0.0 10^3/uL (0-0.7) 01/18/25 21:42
Absolute Basos (auto) 0.0 10^3/uL (0-0.2) 01/18/25 21:42
Immature Gran % 0.5 % (0-0.5) 01/18/25 21:42
Neutrophils % 81.6 % (42.2-75.2) H 01/18/25 21:42
Lymphocytes % 6.5 % (20.5-51.1) L 01/18/25 21:42
Monocytes % 10.8 % (1.7-9.3) H 01/18/25 21:42
Eosinophils % 0.1 % (0-6) 01/18/25 21:42
Basophils % 0.5 % (0-2) 01/18/25 21:42
Creatinine 0.8 mg/dL (0.7-1.3) 01/20/25 06:23
Vital Signs
Vital Signs
Temp Pulse Resp BP Pulse Ox
99.1 F 78 16 96/51 93
01/20/25 07:30 01/20/25 07:30 01/20/25 07:30 01/20/25 07:30 01/20/25 07:30
--- NOTE | 2025-01-20 11:43 | W.PN.ID1 ---
Date of Service
Date of Service: January 20, 2025
Today's Communication
continue vancomycin and zosyn
follow up wound culture
Assessment / Plan
Abdominal wall infection
Immunosuppression
Reported unknown allergy to penicillin - removed, patient is not allergic
Recent repair of incarcerated hernia with mesh 01/09/25
- increased drainage from the drain site
- continue vancomycin, zosyn for now, follow up wound culture
- blood cultures x2 - in progress
- wound culture is in progress, gram stain rare GPCs
- not allergic to penicillin
Chief Complaint
-: Other (abdominal wall infection)
Subjective / Review of Systems
fevers ongoing overnight
bp stable
increased purulent drainage from the drain site
Vital Signs / Physical Exam
Vital Signs
Vital Signs
Temp Pulse Resp BP Pulse Ox
99.1 F 78 16 96/51 93
01/20/25 07:30 01/20/25 07:30 01/20/25 07:30 01/20/25 07:30 01/20/25 07:30
Physical Exam
Constitutional: No Acute Distress
Cardiovascular: Regular Rate and S1/S2; Negative Murmur or Rub
Pulmonary: Clear and Symmetric; Negative Wheezes or Rales
Gastrointestinal: Soft, Non Tender, Non Distended and Normal Bowel Sounds
Skin: Warm and Dry; Negative Rash or Jaundice
Wound: Other (increased purulent drainage from previous drain site)
Objective Data
Lab Data
Lab Results
01/20/25 06:23
01/20/25 06:23
Estimated Creat Clear 72 ml/min 01/20/25 06:23
Lactic Acid 0.8 mmol/L (0.7-2.0) 01/20/25 00:00
Total Bilirubin 0.6 mg/dl (0.2-1.3) 01/20/25 06:23
AST 16 U/L (17-59) L 01/20/25 06:23
ALT 20 U/L (0-50) 01/20/25 06:23
Alkaline Phosphatase 87 U/L (38-126) 01/20/25 06:23
Most recent labs reviewed.
Micro Results:
01/19/25 00:51 Wound Culture - Pending
Abdomen Gram Stain - Preliminary
01/19/25 11:09 Blood Culture - Preliminary
Blood/Venous No Growth in 24 hours- Final report to follow
01/19/25 06:22 MRSA Screen - Final
Nose No Methicillin Resistant Staphylococcus aureus isolated.
01/19/25 11:40 Blood Culture - Pending
Blood/Venous
[2025-01-20] MEDS: TYLENOL 650 MG PO (12:20)
--- NOTE | 2025-01-20 16:04 | CM ---
CM reviewed chart, care ongoing.
Patient remains on IV fluids, IV antibiotics, wound culture pending per I.D.
Patient current with [facility]- plan remains home with [facility] upon d/c
CM will continue to follow.
Plan; home with [facility], watch for IV antibiotic needs
--- NOTE | 2025-01-20 17:05 | W.PN.GS2 ---
Today's Communication / Plan
-
Bedside I&D performed.
Over the course the day, patient states that he is starting to feel little bit better.
Will continue nonoperative management with antibiotics alone for now.
Assessment / Plan
-
This is a 74-year-old male who underwent a robotic right inguinal hernia repair with mesh for a very large incarcerated right inguinal hernia with an extra-large mid weight mesh with intraoperative drain placement to manage postoperative seroma who
presents with a surgical site infection
Regular diet
IV antibiotics, preliminary cultures are growing Staphylococcus aureus
Wound care: Change packing right lower quadrant wound with iodoform packing twice daily.
New wound culture sent
General Surgery will follow
Time Spent
Total Time Spent with Patient (in minutes): 20
Subjective Data
-
Date of Service: January 20, 2025
Interval Events:
Had a poor night, did not sleep well. Fevers. Minimal p.o. intake, poor appetite. Still has bowel function. Reports more drainage from the drain site.
Objective Data
-
Intake and Output
01/19/25 01/20/25 01/21/25
06:59 06:59 06:59
Intake Total 3320 / 3320 290 / 290
Output Total 1400 / 1400 200 / 200
Balance - 1920 / 1920 90 / 90
Intake:
Oral fluids 960 / 960 240 / 240
IV fluids (Total) 1500 / 1500
IV piggybacks 860 / 860 50 / 50
Output:
Drain Output (Total)
Right Lower Abdomen Micah-
[place]
Urine, Voided 1400 / 1400 200 / 200
Other:
Number of approximated MODERATE 2
amounts of urine
Vital Signs
Temp Pulse Resp BP Pulse Ox
98.6 F 82 16 110/44 98
01/20/25 15:37 01/20/25 15:37 01/20/25 15:37 01/20/25 15:37 01/20/25 15:37
Lab Results
01/20/25 06:23
01/20/25 06:23
Calcium 7.7 mg/dl (8.4-10.2) L 01/20/25 06:23
Magnesium 1.9 mg/dl (1.6-2.3) 01/20/25 06:23
Total Bilirubin 0.6 mg/dl (0.2-1.3) 01/20/25 06:23
AST 16 U/L (17-59) L 01/20/25:23
ALT 20 U/L (0-50) 01/20/25 06:23
Alkaline Phosphatase 87 U/L (38-126) 01/20/25 06:23
Total Protein 5.3 g/dl (6.3-8.2) L D 01/20/25 06:23
Albumin 2.7 g/dl (3.5-5.0) L 01/20/25 06:23
Physical Exam
-
GENERAL/NEURO: Awake, Alert, no distress
CHEST: Unlabored breathing on RA
ABDOMEN: Soft, Non-Tender, Non-Distended, pus noted to be emanating from the drain site. This was incised further with using local and gently probed with no obvious expulsion of pus but a repeat culture was taken. The wound was packed with
iodoform packing.
Patient has a salvador catheter: No
Patient has a central line: No
[2025-01-20] MEDS: LOVENOX 40 MG SC (17:33)
[2025-01-20] MEDS: CRESTOR 20 MG PO (17:33)
[2025-01-20] MEDS: ROXICODONE 5 MG PO (21:22)
[2025-01-21] MEDS: ZOSYN 50 IV ×2 (02:12→08:38)
[2025-01-21 03:19] VITALS: BP 110/58
[2025-01-21] MEDS: VANCOCIN 150 IV (05:49)
[2025-01-21 06:13] LABS: Hematocrit 26.9 % (39.0-52.0); Hemoglobin 8.7 g/dL (13.0-18.0); Mean Corp Hgb Conc. 32.3 g/dL (33.0-37.0); Mean Corpuscular Volume 96.1 fL (80.0-94.0); Nucleated Red Blood Cells % 0 % (-); Platelet Count 165 10^3/uL (130-400); Red Cell Dist. Width 14.5 % (11.5-14.5)
[2025-01-21 07:25] VITALS: BP 105/59
[2025-01-21] MEDS: ZOVIRAX 400 MG PO ×2 (08:38→20:30)
[2025-01-21] MEDS: COLACE 100 MG PO ×2 (08:38→20:30)
[2025-01-21] MEDS: SENOKOT-S 1 TABLET PO (08:38)
[2025-01-21] MEDS: ASPIR LOW (ENTERIC COATED) 81 MG PO (08:38)
--- NOTE | 2025-01-21 09:57 | W.PN.HOSP.TC ---
Today's Communication/Plan
-
- Acute anemia due to chemotherapy. Transfusion consent is signed for now. Await oncology recommendations if need blood
- c/w IV for MSSA
- Bowel regimen for constipation
Assessment / Plan
Assessment / Plan
Physical Exam
General: not in distress, chronically ill looking.
HEENT: Normocephalic
Respiratory: Non Labored Respirations
GI: Soft, Non Distended, Tender and Other (Left-sided DIONNE drain with serosanguineous drainage. Incision site with erythema and purulent drainage with some blood. Slightly tender to palpation.)
Genito-urinary:No Dia
Musculoskeletal: No Clubbing, No Cyanosis and No Edema
Neuro: AO x 3 and Nonfocal/grossly intact
Psych: calm
Surgical site infection complicated by immunosuppression from multiple myeloma treatment
Sepsis POA ( fever/ cellulitis, high neutrophils) with evolving Septic shock
Blood pressure responded to IVF
s/p Bedside I&D performed on 01/[address] Monge.
Less tenderness abdominal RLQ
Blood culture is NGTD
c/w IV Abx. Can lower coverage to specific microbe.
Culture from wound MSSA
MRSA screen is negative
Appreciate ID & surgery help
# s/p incarcerated right inguinal hernia repair with mesh on 01/09/[address] Monge
Drain was removed 01/19.
#multiple myeloma treated with Bortezomib (followed by Dr. Leiva/luisa) and prostate ca
being treated with daratumumab/ velcade and dexamethasone along w/ Revlimid
consulted oncology
# Acute anemia due to chemotherapy
Transfusion consent is signed for now
Await oncology recommendations if need blood
DVT PPX - lovenox sq
Code status - Full code
Total time spent to see the patient, examine the patient, review data and lab results, discuss treatment plan with patient, nursing staff around 55 minutes
Anticipated Discharge: > 48 hours
Subjective/Interval History
-
Date of Service: January 21, 2025
feels better
still weak
no localized pain
Objective Data
-
Labs:
Laboratory Results
01/21/25
05:47
WBC 7.3
Hgb 8.7 L
Hct 26.9 L
Plt Count 165
Vital Signs:
Vital Signs
Temp Pulse Resp BP Pulse Ox
99.5 F 82 18 105/59 97
01/21/25 07:25 01/21/25 07:25 01/21/25 07:25 01/21/25 07:25 01/21/25 07:25
I&O
01/20/25 01/21/25 01/22/25
06:59 06:59 06:59
Intake Total 3320 / 3320 780 / 780
Output Total 1400 / 1400 1050 / 1050 300 / 300
Balance 1920 / 1920 -270 / -270 -300 / -300
[2025-01-21 11:30] VITALS: BP 113/49
--- NOTE | 2025-01-21 11:53 | W.PN.GS2 ---
Today's Communication / Plan
-
IV abx
Assessment / Plan
-
This is a 74-year-old male who underwent a robotic right inguinal hernia repair with mesh for a very large incarcerated right inguinal hernia with an extra-large mid weight mesh with intraoperative drain placement to manage postoperative seroma who
presents with a surgical site infection
Cx: MSSA
Fever curve improving
Regular diet
IV antibiotics
Wound care: Change packing right lower quadrant wound with iodoform packing twice daily
Reg diet
Heme/onc following, recs appreciated
General Surgery will follow
Subjective Data
-
Date of Service: January 21, 2025
Tmax 100F, pain controlled, ambulating
Objective Data
-
Intake and Output
01/20/25 01/21/25 01/22/25
06:59 06:59 06:59
Intake Total 3320 / 3320 780 / 780
Output Total 1400 / 1400 1050 / 1050 300 / 300
Balance 1920 / 1920 -270 / -270 -300 / -300
Intake:
Oral fluids 960 / 960 480 / 480
IV fluids (Total) 1500 / 1500
IV piggybacks 860 / 860 300 / 300
Output:
Urine, Voided 1400 / 1400 1050 / 1050 300 / 300
Other:
Number of approximated MODERATE 2
amounts of urine
Vital Signs
Temp Pulse Resp BP Pulse Ox
99.5 F 82 18 105/59 97
01/21/25 07:25 01/21/25 07:25 01/21/25 07:25 01/21/25 07:25 01/21/25 10:47
Lab Results
01/21/25 05:47
01/20/25 06:23
Calcium 7.7 mg/dl (8.4-10.2) L 01/20/25 06:23
Magnesium 1.9 mg/dl (1.6-2.3) 01/20/25 06:23
Total Bilirubin 0.6 mg/dl (0.2-1.3) 01/20/25 06:23
AST 16 U/L (17-59) L 01/20/25 06:23
ALT 20 U/L (0-50) 01/20/25 06:23
Alkaline Phosphatase 87 U/L (38-126) 01/20/25 06:23
Total Protein 5.3 g/dl (6.3-8.2) L D 01/20/25 06:23
Albumin 2.7 g/dl (3.5-5.0) L 01/20/25 06:23
Physical Exam
-
Gen: NAD
Abd: soft, I&D site with mild erythema and induration, no fuctuance, no dee dee purulence, incisions cdi with glue
Patient has a salvador catheter: No
Patient has a central line: No
--- NOTE | 2025-01-21 12:46 | W.PN.ID1 ---
Date of Service
Date of Service: January 21, 2025
Today's Communication
- start cefazolin, stop vancomycin, zosyn, site was opened further at the bedside by surgery, can transition to oral keflex when cleared by surgery for a two week course
Assessment / Plan
Abdominal wall infection
Immunosuppression
Reported unknown allergy to penicillin - removed, patient is not allergic
Recent repair of incarcerated hernia with mesh 01/09/25
- blood cultures x2 - in progress no growth to date
- wound culture is in progress x2, MSSA
- start cefazolin, stop vancomycin, zosyn, site was opened further at the bedside by surgery, can transition to oral keflex when cleared by surgery for a two week course
- discussed with patient that while we hope this is a superficial infection, if deeper structures are involved then he could relapse and he should be sure to follow up in that case
Chief Complaint
-: Other (abdominal wall infection)
Subjective / Review of Systems
afebrile
bp stable
'I feel a lot better today'
Vital Signs / Physical Exam
Vital Signs
Vital Signs
Temp Pulse Resp BP Pulse Ox
98.9 F 83 16 113/49 96
01/21/25 11:30 01/21/25 11:30 01/21/25 11:30 01/21/25 11:30 01/21/25 11:30
Physical Exam
Constitutional: No Acute Distress
Cardiovascular: Regular Rate and S1/S2; Negative Murmur or Rub
Pulmonary: Clear and Symmetric; Negative Wheezes or Rales
Gastrointestinal: Soft, Non Tender, Non Distended and Normal Bowel Sounds
Skin: Warm and Dry; Negative Rash or Jaundice
Wound: Other (drain site packed, no purulent drainage, minimal surrounding erythema)
Objective Data
Lab Data
Lab Results
01/21/25 05:47
01/20/25 06:23
Estimated Creat Clear 72 ml/min 01/20/25 06:23
Lactic Acid 0.8 mmol/L (0.7-2.0) 01/20/25 00:00
Total Bilirubin 0.6 mg/dl (0.2-1.3) 01/20/25 06:23
AST 16 U/L (17-59) L 01/20/25 06:23
ALT 20 U/L (0-50) 01/20/25 06:23
Alkaline Phosphatase 87 U/L (38-126) 01/20/25 06:23
Most recent labs reviewed.
Micro Results:
01/19/25 11:40 Blood Culture - Preliminary
Blood/Venous No Growth in 48 hours- Final report to follow
01/19/25 11:09 Blood Culture - Preliminary
Blood/Venous No Growth in 48 hours- Final report to follow
01/20/25 15:40 Wound Culture - Preliminary
Abdomen S aureus-Methicillin Sensitive
Gram Stain - Preliminary
01/19/25 00:51 Wound Culture - Final
Abdomen S aureus-Methicillin Sensitive
Gram Stain - Final
01/19/25 06:22 MRSA Screen - Final
Nose No Methicillin Resistant Staphylococcus aureus isolated.
[2025-01-21] MEDS: ANCEF 10 IV ×2 (14:14→21:40)
--- NOTE | 2025-01-21 14:41 | CM ---
S/P hernia repair infection. IV/Ancef. Acute anemia due to chemotherapy. Oncology will determine if needs blood. Discharge POC: Home with [facility] RN. Referral previously forwarded.
[2025-01-21 15:35] VITALS: BP 111/58
[2025-01-21] MEDS: TYLENOL 650 MG PO (16:44)
[2025-01-21] MEDS: DULCOLAX 10 MG RECTAL (16:44)
[2025-01-21] MEDS: MIRALAX 17 GRAMS PO (16:56)
[2025-01-21] MEDS: LOVENOX 40 MG SC (17:01)
[2025-01-21] MEDS: CRESTOR 20 MG PO (17:01)
[2025-01-21 19:21] VITALS: BP 112/56
[2025-01-21] MEDS: SENOKOT-S 2 TABLET PO (20:35)
[2025-01-21 23:18] VITALS: BP 107/49
[2025-01-22 03:15] VITALS: BP 106/55
[2025-01-22] MEDS: ANCEF 10 IV ×2 (05:05→12:57)
[2025-01-22 07:21] LABS: Hematocrit 28.6 % (39.0-52.0); Hemoglobin 9.2 g/dL (13.0-18.0); Mean Corp Hgb Conc. 32.2 g/dL (33.0-37.0); Mean Corpuscular Volume 93.8 fL (80.0-94.0); Platelet Count 189 10^3/uL (130-400); Red Cell Dist. Width 14.6 % (11.5-14.5)
[2025-01-22 07:35] VITALS: BP 129/59
[2025-01-22 07:37] LABS: Blood Urea Nitrogen 10 mg/dl (9-20); Calcium 7.8 mg/dl (8.4-10.2); Carbon Dioxide 26 mmol/L (22-30); Chloride 109 mmol/L (98-107); Estimated Creatinine Clearance 82 ml/min; Glucose 101 mg/dl (70-99); Potassium 3.2 mmol/L (3.5-5.1); Sodium 139 mmol/L (135-145); eGFR > 60.00
[2025-01-22] MEDS: ZOVIRAX 400 MG PO ×2 (07:58→20:14)
[2025-01-22] MEDS: ASPIR LOW (ENTERIC COATED) 81 MG PO (07:58)
[2025-01-22] MEDS: COLACE 100 MG PO (07:58)
--- NOTE | 2025-01-22 08:35 | W.PN.ID1 ---
Date of Service
Date of Service: January 22, 2025
Today's Communication
transition to keflex for a two week course
Assessment / Plan
Abdominal wall infection
Immunosuppression
Reported unknown allergy to penicillin - removed, patient is not allergic
Recent repair of incarcerated hernia with mesh 01/09/25
- blood cultures x2 - in progress no growth to date
- wound culture is in progress x2, MSSA
- can transition to oral keflex for a two week course
- discussed with patient that while we hope this is a superficial infection, if deeper structures are involved then he could relapse and he should be sure to follow up in that case
Chief Complaint
-: Other (abdominal wall infection)
Subjective / Review of Systems
afebrile
bp stable
Vital Signs / Physical Exam
Vital Signs
Vital Signs
Temp Pulse Resp BP Pulse Ox
98.4 F 77 18 129/59 99
01/22/25 07:35 01/22/25 07:35 01/22/25 07:35 01/22/25 07:35 01/22/25 07:35
Physical Exam
Constitutional: No Acute Distress
Cardiovascular: Regular Rate and S1/S2; Negative Murmur or Rub
Pulmonary: Clear and Symmetric; Negative Wheezes or Rales
Gastrointestinal: Soft, Non Tender, Non Distended and Normal Bowel Sounds
Skin: Warm and Dry; Negative Rash or Jaundice
Wound: Other (redness around the surgical site)
Objective Data
Lab Data
Lab Results
01/22/25 06:17
01/22/25 06:17
Estimated Creat Clear 82 ml/min 01/22/25 06:17
Lactic Acid 0.8 mmol/L (0.7-2.0) 01/20/25 00:00
Total Bilirubin 0.6 mg/dl (0.2-1.3) 01/20/25 06:23
AST 16 U/L (17-59) L 01/20/25 06:23
ALT 20 U/L (0-50) 01/20/25 06:23
Alkaline Phosphatase 87 U/L (38-126) 01/20/25 06:23
Most recent labs reviewed.
Micro Results:
01/19/25 11:40 Blood Culture - Preliminary
Blood/Venous No Growth in 48 hours- Final report to follow
01/19/25 11:09 Blood Culture - Preliminary
Blood/Venous No Growth in 48 hours- Final report to follow
01/20/25 15:40 Wound Culture - Preliminary
Abdomen S aureus-Methicillin Sensitive
Gram Stain - Preliminary
01/19/25 00:51 Wound Culture - Final
Abdomen S aureus-Methicillin Sensitive
Gram Stain - Final
01/19/25 06:22 MRSA Screen - Final
Nose No Methicillin Resistant Staphylococcus aureus isolated.
Care Review
Plan reviewed with: Physician (Dr Smith- disposition, antibiotics)
--- NOTE | 2025-01-22 08:47 | W.PN.ONC2 ---
Today's Communication / Plan
-
follow CBC
Impression
Impression
post-op MSSA wound infection, s/p RIH repair w/ mesh on 01/09/25
multiple myeloma, on daraRVd per Dr. Leiva
anemia, acute
Plan
Plan
Mgmt of post-op wound per surgery, ID
Revlimid on hold; plans to resume myeloma therapy TBD - currently on schedule for 01/23, but will postpone
Monitor CBC - anemia developed since admission, likely from procedures, dilution, and marrow suppression from infection/abx
Subjective/Objective
Subjective
afebrile, no hypoxia or hypotension
using Tylenol for pain
using colace, senna, miralax, bisacodyl
Vital Signs:
Vital Signs
Temp Pulse Resp BP Pulse Ox
98.4 F 77 18 129/59 99
01/22/25 07:35 01/22/25 07:35 01/22/25 07:35 01/22/25 07:35 01/22/25 07:35
Lab Results:
Laboratory Data
WBC 6.2 10^3/uL (4.8-10.8) 01/22/25 06:17
Hgb 9.2 g/dL (13.0-18.0) L 01/22/25 06:17
Plt Count 189 10^3/uL (130-400) 01/22/25 06:17
eGFR > 60.00 01/22/25 06:17
Physical Exam
HEENT: Moist Mucous Membranes; No Jaundice
Pulmonary: Other (unlabored)
Extremities: Pulses Present
[2025-01-22] MEDS: KCL 20 MEQ PO ×2 (09:11→20:13)
--- NOTE | 2025-01-22 09:39 | W.PN.HOSP.TC ---
Today's Communication/Plan
-
Possible dc in next 24-48 hours
Assessment / Plan
Assessment / Plan
Physical Exam
General: not in distress, chronically ill looking.
HEENT: Normocephalic
Respiratory: Non Labored Respirations
GI: Soft, Non Distended, not Tender and Other (Left-sided abd quadrant: wound with much less purulent secretion/incisional wound.
Genito-urinary:No Dia
Musculoskeletal: No Clubbing, No Cyanosis and No Edema
Neuro: AO x 3 and Nonfocal/grossly intact
Psych: calm
Surgical site infection complicated by immunosuppression from multiple myeloma treatment
Sepsis POA ( fever/ cellulitis, high neutrophils) with evolving Septic shock
Blood pressure responded to IVF
s/p Bedside I&D performed on 01/[address] Monge.
No tenderness abdominal RLQ
Blood culture is NGTD
c/w IV Ancef.
Culture from wound MSSA
MRSA screen is negative
Appreciate ID & surgery help
# s/p incarcerated right inguinal hernia repair with mesh on 01/09/[address] Monge
Drain was removed 01/19.
#multiple myeloma treated with Bortezomib (followed by Dr. Leiva/luisa) and prostate ca
being treated with daratumumab/ velcade and dexamethasone along w/ Revlimid
consulted oncology
# Acute on chronic anemia: Combination of mild acute blood loss anemia/delusional anemia/anemia of chronic disease and secondary to chemotherapy.
Transfusion consent is signed for now
Counts seems table.
Per oncology: anemia developed since admission, likely from procedures, dilution, and marrow suppression from infection/abx
# hypokalemia
replace
DVT PPX - lovenox sq
Code status - Full code
Total time spent to see the patient, examine the patient, review data and lab results, discuss treatment plan with patient, nursing staff around 55 minutes
Anticipated Discharge: Within 24 hours
Subjective/Interval History
-
Date of Service: January 22, 2025
He is feeling better
less body aches
Objective Data
-
Labs:
Laboratory Results
01/22/25
06:17
WBC 6.2
Hgb 9.2 L
Hct 28.6 L
Plt Count 189
Sodium 139
Potassium 3.2 L
Chloride 109 H
Carbon Dioxide 26
BUN 10
Creatinine 0.7
Glucose 101 H
Calcium 7.8 L
Vital Signs:
Vital Signs
Temp Pulse Resp BP Pulse Ox
98.4 F 77 18 129/59 99
01/22/25 07:35 01/22/25 07:35 01/22/25 07:35 01/22/25 07:35 01/22/25 07:35
I&O
01/21/25 01/22/25 01/23/25
06:59 06:59 06:59
Intake Total 780 / 780 1450 / 1450
Output Total 1050 / 1050 900 / 900
Balance -270 / -270 550 / 550
[2025-01-22 11:30] VITALS: BP 116/57
--- NOTE | 2025-01-22 11:38 | W.PN.GS2 ---
Today's Communication / Plan
-
`
Assessment / Plan
-
This is a 74-year-old male who underwent a robotic right inguinal hernia repair with mesh for a very large incarcerated right inguinal hernia with an extra-large mid weight mesh with intraoperative drain placement to manage postoperative seroma who
presents with a surgical site infection
Cx: MSSA
Fever curve improving
Regular diet
IV antibiotics
Wound care: Change packing right lower quadrant wound with iodoform packing twice daily
Reg diet
Given mild persistent swelling and erythema will repeat CT imaging to evaluate for any signs of undrained fluid collections that may be infectious in nature.
Subjective Data
-
Date of Service: January 22, 2025
Patient seen and examined.
Also discussed with his
Lower abdominal inguinal discomfort about the same. Most noticeable when ambulating. Not worse than previously.
Continued scrotal swelling
No subjective fevers chills sweats
Tolerating diet, + bowel movement
Objective Data
-
Intake and Output
01/21/25 01/22/25 01/23/25
06:59 06:59 06:59
Intake Total 780 / 780 1450 / 1450
Output Total 1050 / 1050 900 / 900
Balance -270 / -270 550 / 550
Intake:
Oral fluids 480 / 480 1440 / 1440
IV piggybacks 300 / 300
Output:
Urine, Voided 1050 / 1050 900 / 900
Vital Signs
Temp Pulse Resp BP Pulse Ox
98.4 F 77 18 129/59 99
01/22/25 07:35 01/22/25 07:35 01/22/25 07:35 01/22/25 07:35 01/22/25 07:35
Lab Results
01/22/25 06:17
01/22/25 06:17
Calcium 7.8 mg/dl (8.4-10.2) L 01/22/25 06:17
Magnesium 1.9 mg/dl (1.6-2.3) 01/20/25 06:23
Total Bilirubin 0.6 mg/dl (0.2-1.3) 01/20/25 06:23
AST 16 U/L (17-59) L 01/20/25 06:23
ALT 20 U/L (0-50) 01/20/25 06:23
Alkaline Phosphatase 87 U/L (38-126) 01/20/25 06:23
Total Protein 5.3 g/dl (6.3-8.2) L D 01/20/25 06:23
Albumin 2.7 g/dl (3.5-5.0) L 01/20/25 06:23
Physical Exam
-
NAD AAO x 3
ABD: Soft, nondistended, mild tenderness in the right inguinal region
Packing removed and there is still some purulent drainage but not large quantity. Packing strip was replaced with a gauze dressing.
Scrotal swelling and some erythema/warmth around the suprapubic and scrotal region.
[2025-01-22] MEDS: TYLENOL 650 MG PO ×2 (12:57→22:49)
[2025-01-22] MEDS: CRESTOR 20 MG PO (17:05)
[2025-01-22] MEDS: LOVENOX 40 MG SC (17:05)
[2025-01-22] MEDS: KEFLEX 500 MG PO ×2 (17:05→21:58)
[2025-01-22 19:30] VITALS: BP 114/58
[2025-01-22] MEDS: COLACE PO (20:13)
[2025-01-22] MEDS: SENOKOT-S PO (22:04)
[2025-01-22 22:43] VITALS: BP 126/65
[2025-01-23 07:35] VITALS: BP 116/58
[2025-01-23] MEDS: KCL 20 MEQ PO ×2 (07:39→19:51)
[2025-01-23] MEDS: ZOVIRAX 400 MG PO ×2 (07:40→19:50)
[2025-01-23] MEDS: ASPIR LOW (ENTERIC COATED) 81 MG PO (07:40)
[2025-01-23] MEDS: KEFLEX 500 MG PO ×4 (07:40→22:25)
[2025-01-23] MEDS: COLACE PO ×2 (07:42→19:52)
--- NOTE | 2025-01-23 10:35 | W.PN.HOSP.TC ---
Today's Communication/Plan
-
Monitor temp curve
Assessment / Plan
Assessment / Plan
Physical Exam
General: not in distress, chronically ill looking.
HEENT: Normocephalic
Respiratory: Non Labored Respirations
GI: Soft, Non Distended, not Tender and Other (Left-sided abd quadrant: wound with much less purulent secretion/incisional wound.
Genito-urinary:No Dia
Musculoskeletal: No Clubbing, No Cyanosis and No Edema
Neuro: AO x 3 and Nonfocal/grossly intact
Psych: calm
Surgical site infection complicated by immunosuppression from multiple myeloma treatment
Sepsis POA ( fever/ cellulitis, high neutrophils) with evolving Septic shock
Blood pressure responded to IVF
s/p Bedside I&D performed on 01/[address] Monge.
No tenderness abdominal RLQ
Blood culture is NGTD
c/w IV Ancef. Now ok Keflex
Pt feels 99 temp is high for him, asked to stay in hospital another day.
Culture from wound MSSA
MRSA screen is negative
Appreciate ID & surgery help
# s/p incarcerated right inguinal hernia repair with mesh on 01/09/[address] Monge
Drain was removed 01/19.
#multiple myeloma treated with Bortezomib (followed by Dr. Leiva/luisa) and prostate ca
being treated with daratumumab/ velcade and dexamethasone along w/ Revlimid
consulted oncology
# Acute on chronic anemia: Combination of mild acute blood loss anemia/delusional anemia/anemia of chronic disease and secondary to chemotherapy.
Transfusion consent is signed for now
Counts seems table.
Per oncology: anemia developed since admission, likely from procedures, dilution, and marrow suppression from infection/abx
# hypokalemia
replace
DVT PPX - lovenox sq
Code status - Full code
Total time spent to see the patient, examine the patient, review data and lab results, discuss treatment plan with patient, , nursing staff around 57 minutes
Anticipated Discharge: Within 24 hours
Subjective/Interval History
-
Date of Service: January 23, 2025
No chest pain
No sob
Objective Data
-
Vital Signs:
Vital Signs
Temp Pulse Resp BP Pulse Ox
99.5 F 75 16 116/58 99
01/23/25 07:35 01/23/25 07:35 01/23/25 07:35 01/23/25 07:35 01/23/25 07:35
I&O
01/22/25 01/23/25 01/24/25
06:59 06:59 06:59
Intake Total 1450 / 1450 960 / 960 480 / 480
Output Total 900 / 900
Balance 550 / 550 960 / 960 480 / 480
--- NOTE | 2025-01-23 12:27 | W.PN.GS2 ---
Addendum entered and electronically signed by Chaz Da Silva MD 01/23/25 12:38:
I saw and examined the patient.
The Air Saw Operator's note was reviewed and I agree with the note.
Comment: Improving. Afebrile. Less pain. On exam the wound is improved - erythema nearly resolved, induration is minimal, there is purulence in the wound pocket, packing was changed. Cont packing changes BID. Plan for DC today with 2 weeks keflex
and prompt outpt f/u.
Original Note:
Today's Communication / Plan
-
dispo planning
Assessment / Plan
-
This is a 74-year-old male who underwent a robotic right inguinal hernia repair with mesh on 01/09/25 for a very large incarcerated right inguinal hernia with an extra-large mid weight mesh with intraoperative drain placement to manage postoperative
seroma who presents with a surgical site infection. Drain removed on admission.
Wound Cx: MSSA
Blood cx: no growth
No further fevers, VSS
Repeat CT on 01/22 with significant decrease of fluid adjacent to recent operative site, no abscess/drainable fluid collection. Persistent inflammatory stranding noted.
Plan:
Regular diet
IV antibiotics
Wound care: Change packing right lower quadrant wound with iodoform packing twice daily
Keflex x2 week course as per ID
Ok for d/c from surgical standpoint, will follow closely as an outpatient.
Subjective Data
-
Date of Service: January 23, 2025
Pt seen and examined at bedside with Dr. Da Silva. Tolerating diet. Denies n/v. Poor appetite overall. Passing flatus/stools. Pain gradually improving.
Objective Data
-
Intake and Output
01/22/25 01/23/25 01/24/25
06:59 06:59 06:59
Intake Total 1450 / 1450 960 / 960 480 / 480
Output Total 900 / 900
Balance 550 / 550 960 / 960 480 / 480
Intake:
Oral fluids 1440 / 1440 960 / 960 480 / 480
IV piggybacks
Output:
Urine, Voided 900 / 900
Other:
Number of approximated MODERATE 2
amounts of urine
Number of unmeasured liquid
stools
Rectum 2
Vital Signs
Temp Pulse Resp BP Pulse Ox
99.5 F 75 16 116/58 99
01/23/25 07:35 01/23/25 07:35 01/23/25 07:35 01/23/25 07:35 01/23/25 07:35
Lab Results
01/22/25 06:17
01/22/25 06:17
Calcium 7.8 mg/dl (8.4-10.2) L 01/22/25 06:17
Magnesium 1.9 mg/dl (1.6-2.3) 01/20/25 06:23
Total Bilirubin 0.6 mg/dl (0.2-1.3) 01/20/25 06:23
AST 16 U/L (17-59) L 01/20/25 06:23
ALT 20 U/L (0-50) 01/20/25 06:23
Alkaline Phosphatase 87 U/L (38-126) 01/20/25 06:23
Total Protein 5.3 g/dl (6.3-8.2) L D 01/20/25 06:23
Albumin 2.7 g/dl (3.5-5.0) L 01/20/25 06:23
Physical Exam
-
NAD AAO x 3
ABD: Soft, nondistended, mild tenderness in the right inguinal region
Packing removed and there is still some purulent drainage but not large quantity. Packing strip was replaced with a gauze dressing.
Local erythema to prior drain site, all other erythema resolved
--- NOTE | 2025-01-23 13:42 | CM ---
Patient has been medically cleared for discharge to home with [facility] RN services. Patient arranged for transport home.
[2025-01-23 14:23] VITALS: BP 124/61; PULSE 85
[2025-01-23 15:00] VITALS: BP 121/58
[2025-01-23] MEDS: TYLENOL 650 MG PO (15:18)
[2025-01-23] MEDS: CRESTOR 20 MG PO (16:43)
[2025-01-23] MEDS: LOVENOX 40 MG SC (16:44)
[2025-01-23] MEDS: SENOKOT-S PO (22:27)
[2025-01-23 23:18] VITALS: BP 116/71
[2025-01-24] MEDS: KEFLEX 500 MG PO ×2 (08:01→12:20)
[2025-01-24] MEDS: ZOVIRAX 400 MG PO (08:01)
[2025-01-24] MEDS: ASPIR LOW (ENTERIC COATED) 81 MG PO (08:02)
[2025-01-24] MEDS: KCL 20 MEQ PO (08:02)
[2025-01-24] MEDS: COLACE PO (08:03)
[2025-01-24 08:05] VITALS: BP 129/69
[2025-01-24 08:59] LABS: Hematocrit 28.2 % (39.0-52.0); Hemoglobin 9.5 g/dL (13.0-18.0); Mean Corp Hgb Conc. 33.7 g/dL (33.0-37.0); Mean Corpuscular Volume 89.5 fL (80.0-94.0); Platelet Count 208 10^3/uL (130-400); Red Cell Dist. Width 14.5 % (11.5-14.5)
[2025-01-24 09:19] LABS: Blood Urea Nitrogen 12 mg/dl (9-20); Calcium 7.8 mg/dl (8.4-10.2); Carbon Dioxide 25 mmol/L (22-30); Chloride 109 mmol/L (98-107); Estimated Creatinine Clearance 96 ml/min; Glucose 87 mg/dl (70-99); Potassium 3.4 mmol/L (3.5-5.1); Sodium 140 mmol/L (135-145); eGFR > 60.00
[2025-01-24] MEDS: TYLENOL 650 MG PO (09:58)
--- NOTE | 2025-01-24 09:58 | W.PN.ID1 ---
Date of Service
Date of Service: January 24, 2025
Today's Communication
Continue antibiotics.
Assessment / Plan
Abdominal wall infection
Immunosuppression
Reported unknown allergy to penicillin - removed, patient is not allergic
Recent repair of incarcerated hernia with mesh 01/09/25
- blood cultures x2 - no growth to date
- wound culture is in progress x2, MSSA
- c/w oral keflex for a two week course.
- Will need close OP follow-up. If drainage fails to improve, may indicate mesh involvement, which would likely require removal.
����������������������������������������������������������
Chief Complaint
-: Other (abdominal wall infection / SSTI)
Subjective / Review of Systems
Review of Systems: No Fever and No Chills
Vital Signs / Physical Exam
Vital Signs
Vital Signs
Temp Pulse Resp BP Pulse Ox
97.9 F 78 18 129/69 97
01/24/25 08:05 01/24/25 08:05 01/24/25 08:05 01/24/25 08:05 01/24/25 08:05
Physical Exam
Constitutional: No Acute Distress, Comfortable, Chronically Ill and Non-toxic
Cardiovascular: Regular Rate and S1/S2; Negative Murmur or Rub
Pulmonary: Clear and Symmetric; Negative Wheezes or Rales
Gastrointestinal: Soft, Non Tender, Non Distended and Normal Bowel Sounds
Skin: Warm and Dry; Negative Rash or Jaundice
Wound: Other (RLQ trocar site with packing in place. Redness around area. Noted purulent drainage.)
Neurological: Awake and Alert
Psychological: Calm
Objective Data
Lab Data
Lab Results
01/24/25 08:33
01/24/25 08:33
Estimated Creat Clear 96 ml/min 01/24/25 08:33
Lactic Acid 0.8 mmol/L (0.7-2.0) 01/20/25 00:00
Total Bilirubin 0.6 mg/dl (0.2-1.3) 01/20/25 06:23
AST 16 U/L (17-59) L 01/20/25 06:23
ALT 20 U/L (0-50) 01/20/25 06:23
Alkaline Phosphatase 87 U/L (38-126) 01/20/25 06:23
Most recent labs reviewed.
Micro Results:
01/19/25 11:40 Blood Culture - Preliminary
Blood/Venous No Growth in 4 days- Final report to follow
01/19/25 11:09 Blood Culture - Preliminary
Blood/Venous No Growth in 4 days- Final report to follow
01/20/25 15:40 Wound Culture - Final
Abdomen S aureus-Methicillin Sensitive
Gram Stain - Final
01/19/25 00:51 Wound Culture - Final
Abdomen S aureus-Methicillin Sensitive
Gram Stain - Final
01/19/25 06:22 MRSA Screen - Final
Nose No Methicillin Resistant Staphylococcus aureus isolated.
Imaging:
01/22/2025 CT abdomen/pelvis: Postoperative changes with stranding again seen in the region of the right inguinal canal extending into the right hemiscrotum. 3.8 cm focus of mildly heterogeneous fluid seen on recent prior study adjacent to the
right inguinal region significantly decreased. Persistent stranding along the right spermatic cord extending into the right hemiscrotum. No discrete abnormal focal fluid collection although evaluation limited as there are fluid-filled loops of
unopacified large bowel with air-fluid levels approaching the right inguinal region. See full dictation for additional detail. Film personally viewed.
Care Review
Plan reviewed with: Other Provider (Gen Sx)
--- NOTE | 2025-01-24 11:16 | W.PN.HOSP.TC ---
Today's Communication/Plan
-
dc
Assessment / Plan
Assessment / Plan
Physical Exam
General: not in distress, chronically ill looking.
HEENT: Normocephalic
Respiratory: Non Labored Respirations
GI: Soft, Non Distended, not Tender and Other (Left-sided abd quadrant: wound with much less purulent secretion/incisional wound.
Genito-urinary:No Dia
Musculoskeletal: No Clubbing, No Cyanosis and No Edema
Neuro: AO x 3 and Nonfocal/grossly intact
Psych: calm
Surgical site infection complicated by immunosuppression from multiple myeloma treatment
Sepsis POA ( fever/ cellulitis, high neutrophils) with evolving Septic shock
Blood pressure responded to IVF
s/p Bedside I&D performed on 01/[address] Monge.
No tenderness abdominal RLQ
Blood culture is NGTD
c/w IV Ancef. Now ok Keflex
Pt feels better today and ready to discharge
Culture from wound MSSA
MRSA screen is negative
Appreciate ID & surgery help
# s/p incarcerated right inguinal hernia repair with mesh on 01/09/[address] Monge
Drain was removed 01/19.
#multiple myeloma treated with Bortezomib (followed by Dr. Leiva/luisa) and prostate ca
being treated with daratumumab/ velcade and dexamethasone along w/ Revlimid
consulted oncology
# Acute on chronic anemia: Combination of mild acute blood loss anemia/delusional anemia/anemia of chronic disease and secondary to chemotherapy.
Transfusion consent is signed for now
Counts seems table.
Per oncology: anemia developed since admission, likely from procedures, dilution, and marrow suppression from infection/abx
# hypokalemia
replace
DVT PPX - lovenox sq
Code status - Full code
Total discharge time spent to see the patient, examine the patient, review data and lab results, discuss discharge plan with patient, , nursing staff around 65 minutes
Anticipated Discharge: Today
Subjective/Interval History
-
Date of Service: January 24, 2025
He feels better. No more low-grade temperature. Feels ready to go home
Objective Data
-
Labs:
Laboratory Results
01/24/25
08:33
WBC 4.4 L
Hgb 9.5 L
Hct 28.2 L
Plt Count 208
Sodium 140
Potassium 3.4 L
Chloride 109 H
Carbon Dioxide 25
BUN 12
Creatinine 0.6 L
Glucose 87
Calcium 7.8 L
Vital Signs:
Vital Signs
Temp Pulse Resp BP Pulse Ox
97.9 F 78 18 129/69 97
01/24/25 08:05 01/24/25 08:05 01/24/25 08:05 01/24/25 08:05 01/24/25 08:05
I&O
01/23/25 01/24/25 01/25/25
06:59 06:59 06:59
Intake Total 960 / 960 480 / 480
Balance 960 / 960 480 / 480
--- NOTE | 2025-01-24 11:35 | CM ---
CM reviewed pt with attending- anticipate dc today
Bedside meeting with pt and spouse
She is a nurse and feels comfortable with wound care
Update to [facility] and pt accepted for [facility] order requested
IMM verbally reviewed- copy left bedside
Discharge Disposition- home with [facility], family transport
[2025-01-24 11:37] VITALS: BP 109/58
--- NOTE | 2025-01-24 14:28 | W.DCSUMMARY ---
Discharge Summary
Discharge Data
Date of Admission: 01/19/25
Date of Discharge: 01/24/25
-
Pending Results: No
Hospital Course
74 years old male who was recently discharged from the hospital after undergoing right incarcerated and abdominal scrotal hernia repair with mesh placement by Dr. Monge on January 09, 2025. Patient presented with abdominal discomfort, scrotal
swelling, fever. Scan of the abdomen and pelvis showed postsurgical changes related to recent right inguinal hernia surgery, right lower quadrant percutaneous drainage catheter with cracks in inguinal canal and spermatic cord, infiltration of the
subcutaneous fat stranding at drain entry site may signify cellulitis no evidence of abdominal wall abscess collection no soft tissue emphysema, complex collection of fluid in the right iliac fossa near the internal ring that is a 4.4 x 3.5 x 3.2 cm
in size. Patient was diagnosed with surgical site infection complicated by immunosuppressive status from multiple myeloma treatment. Patient was started on broad-spectrum antibiotics. ID doctor was consulted. Surgery evaluated the patient and
started wound care to the surgery site. Patient had draining from prior surgery that was removed to allow of the abdominal wall collection to heal. Blood culture did not show any growth. Wound culture came positive for methicillin sensitive
Staphylococcus aureus. After several days of IV antibiotic, repeat scan showed significant size decrease in the fluid collection seen on prior study. Patient continued to ambulate. He was evaluated by physical therapy. His antibiotic regimen was
changed to oral Keflex with good tolerance. He was evaluated by oncology, he did not need a transfusion. Hemoglobin remained stable around 9.5 upon discharge with white blood cell count 4.4, platelet 208. Patient remained to have normal renal
function and liver function test. Patient remained hemodynamically stable was discharged home in a stable condition.
Discharge Plan
-
Patient Disposition: Home (Routine Discharge)
Discharge Diagnosis/Procedures: surgical site infection
- Follow-up with surgery in the office.
-Follow-up with Dr. Leiva regarding your treatments for multiple myeloma.
Diet: As tolerated
Activity: No strenuous activity
Additional Activity: do not lift over 15lbs in the next 4 weeks
Bathing Restrictions: OK to Shower
Wound Care: Pack site where your drain was located with 1/2 inch iodoform gauze (enough to fill the opening with a small tail on the outside to make it easy to remove) then cover with dry gauze dressing. Change twice a day and as needed if soiled.
Showering and cleansing the area is recommended. Remove dressing for showers and gently wash the area with soap and water and rinse thoroughly. Do not soak in tubs or pools until cleared by your surgeon.
Activity Restrictions/Additional Instructions:
Call your surgeon if you have fevers >100.5, nausea with vomiting or worsening pain
Referrals:
Alexa Leiva DO [Active, Hematology / Oncology] - 01/30/25
Aaron Nesbitt DO [Family Provider, [facility]] - in less than 1 week
Ezio Monge MD [Active, Surgical] - in one to two weeks
Prescriptions:
New
potassium chloride 20 mEq Tablet,Er Particles/Crystals
20 meq PO DAILY Qty: 30 0RF
cephalexin 500 mg Capsule
500 mg PO QID Qty: 56 0RF
Continued
calcium carbonate 600 mg calcium (1,500 mg) Tablet
600 mg PO DAILY
sennosides [senna] 8.6 mg Tablet
17.2 mg PO BID
acyclovir 400 mg Tablet
400 mg PO BID
aspirin 81 mg Tablet,Delayed Release (Dr/Ec)
81 mg PO DAILY
dexamethasone 4 mg Tablet
20 mg PO DIRECTED
Rx Instructions:
TAKE 20MG THE DAY OF and after VELCADE
docusate sodium [Colace] 100 mg Capsule
100 mg PO BID
montelukast [Singulair] 10 mg Tablet
10 mg PO DIRECTED
Rx Instructions:
starting two days before treatment on fridays and contioune one day after treatment (sunday(tx) sunday)
rosuvastatin [Crestor] 20 mg Tablet
20 mg PO QPM
lenalidomide [Revlimid] 25 mg Capsule
25 mg PO DIRECTED
Rx Instructions:
FOR 14 DAY ON AND 7 DAYS OFF
acetaminophen [Tylenol] 325 mg Tablet
650 mg PO Q6HPRN PRN (Reason: take before and after treatment)
famotidine [Pepcid] 20 mg Tablet
20 mg PO DIRECTED
Rx Instructions:
take every sunday before treatment
diphenhydramine HCl [Benadryl] 25 mg Capsule
25 mg PO DAILYPRN PRN (Reason: Velcade Pre-Admin)
Rx Instructions:
take the day of treatment before going
bortezomib [Velcade] 3.5 mg Recon Soln
2.4 mg SC FR
Systane (PF) 0.4-0.3 % Dropperette
1 drp BOTH EYES TIDPRN PRN (Reason: dryness)
Prolia 60 mg/mL Syringe
60 mg SC [id number]
Discharge Orders:
Discharge Patient (As Directed); Ordered 01/23/25
Ordered By: Silva Morris
Discharge Date and Time
Discharge Date/Time: 01/24/25 12:49
Print Language: MONTENEGRIN
== END 2025-01-24 12:49 | disposition home health service (06) | DRG 862 ==
LOC: 2 SOUTH 02:10
PROVIDERS: Emergency Medicine; Registered Nurse; ADMITTING PHYSICIAN Internal Medicine; ATTENDING PHYSICIAN Internal Medicine; CONSULT PHYSICIAN Surgery; EMERGENCY PHYSICIAN Student in an Organized Health Care Education/Training Program; FAMILY PHYSICIAN Family Medicine; OTHER PHYSICIAN Internal Medicine Hematology & Oncology; OTHER PHYSICIAN Student in an Organized Health Care Education/Training Program
DX: T81.41XA Infection following a procedure, superficial incisional surgical site, initial encounter (principal); A41.01 Sepsis due to Methicillin susceptible Staphylococcus aureus; R65.21 Severe sepsis with septic shock; C90.00 Multiple myeloma not having achieved remission; D84.9 Immunodeficiency, unspecified; D62 Acute posthemorrhagic anemia; D64.81 Anemia due to antineoplastic chemotherapy; K59.00 Constipation, unspecified; K21.9 Gastro-esophageal reflux disease without esophagitis; E87.6 Hypokalemia; T45.1X5A Adverse effect of antineoplastic and immunosuppressive drugs, initial encounter; N50.89 Other specified disorders of the male genital organs; Y83.8 Other surgical procedures as the cause of abnormal reaction of the patient, or of later complication, without mention of misadventure at the time of the procedure; Y92.9 Unspecified place or not applicable; Z85.46 Personal history of malignant neoplasm of prostate; Z88.0 Allergy status to penicillin; Z79.82 Long term (current) use of aspirin; Z88.2 Allergy status to sulfonamides; Z91.040 Latex allergy status; Z92.21 Personal history of antineoplastic chemotherapy; Z87.891 Personal history of nicotine dependence
CPT/HCPCS: 74177; 80048; 80053; 83605; 83735; 85025; 85027; 86803; 87040; 87070; 87147; 87186; 87205; 96361; 96374; 97162; 99285; Q9967

== ENCOUNTER → 2025-02-03 08:20 | Outpatient (REF) | payer MEDICARE, SELFPAY | LOC: RAD 08:20 | PROVIDERS: ATTENDING PHYSICIAN Surgery; FAMILY PHYSICIAN Family Medicine; REFERRING PHYSICIAN Internal Medicine Hematology & Oncology | DX: L02.214 Cutaneous abscess of groin (principal) | CPT/HCPCS: 74177; Q9967 ==